=== PATIENT | female | born 1985 | race Caucasian/White ===

== ENCOUNTER 2017-11-03 05:25 | Inpatient (IN) | payer OTHER, SELFPAY ==
[2017-10-31 11:17] VITALS: BMI 30.1
[2017-11-03] VITALS (28 sets, daily range): BP systolic 87–111; BP diastolic 36–68; PULSE 45–88; RESP 16–18; TEMP 35.6–36.7; O2SAT 94–100; BMI 29.9
[2017-11-03] MEDS: Lactated Ringers 1,000 ML 999 ML IV (05:40)
[2017-11-03 06:00] LABS: Hematocrit 34.2 % (37-47); Hemoglobin 11.5 g/dl (12.0-15.0); Mean Corp Hgb Conc 33.6 g/gl (32-36); Mean Corpuscular Hgb 29.6 pg (27.0-32.0); Mean Corpuscular Volume 88.1 fL (81-99); Mean Platelet Vol. 10.5 fl (6.2-12.0); Platelet Count 251 K/mm3 (150-450); RBC Distribution Width CV 13.6 % (11.6-14.6); RBC Distribution Width SD 42.5 fl (35.1-43.9); Red Blood Count 3.88 M/mm3 (4.2-5.4); Scan Indicated on CBC? Y/N NO; White Blood Count 9.7 K/mm3 (4.4-11.0)
[2017-11-03 06:07] LABS: International Normalized Ratio 0.9; Prothrombin Time (Protime)PT. 12.4 SECONDS (11.7-14.9)
[2017-11-03 06:08] LABS: Partial Thromboplast Time 25.6 Seconds (24.1-36.2)
[2017-11-03] MEDS: Lactated Ringers 1,000 ML 150 ML IV (06:39)
[2017-11-03] MEDS: Sodium Citrate/Citric Acid 30 ML UDC PO (06:42)
[2017-11-03] MEDS: Cefazolin 2 GM in 0.9% Normal Saline 100 ML IV (07:30)
[2017-11-03] MEDS: Oxytocin 30 units/NS 500 ml 30 UNITS/500 ML IV.SOLN 167 UNITS IV (07:47)
--- NOTE | 2017-11-03 08:00 | FALS_PTH ---
PATIENT: ROBBY DAWSON LOC: [facility] U#:[id number] AGE/SX: 32/F ROOM: WP004 RE11/03/[address]: Dr. rKistie Key MD : [id number] BED: 1 DIS: 11/05/2017 SPEC #: [id number] RECD: 11/03/17 16:23 STATUS: MARY ANN REJun #: [id number] CYNTHIA: 11/03/17 08:[address]: Kristie Pineda DEPT: SURGICAL PATHOLOGY RECD BY: Femi Narvaez ENTERED: 11/07/17 11:20 SP TYPE: FALL TUBES OTHR DR: Ginette Primary Care Phys Tissues: Fallopian tube Procedures: Surgery Specimen Level II HEADER OPERATION: Tubal ligation PRE-OP DIAGNOSIS: Desires sterilization TISSUE SUBMITTED: Fallopian tubes MICROSCOPIC DIAGNOSIS Right and left fallopian tubes, bilateral partial salpingectomies: Two complete segments of fallopian tubes with no pathologic change. AM:radha 11/08/17 MICROSCOPIC DESCRIPTION Slides are reviewed. GROSS DESCRIPTION Received is one container labeled with the patient's name and not further designated and as per requisition ?stitch in right tube.? The specimen consists of two tubular pieces of perez soft tissue with the right tube identified by a suture which measures 2 cm in length and 0.6 cm in diameter. The left tube measures 2 cm in length and 0.6 cm in diameter. The right tube is inked black. The entire specimen is submitted in one cassette. Both pieces will be sectioned at the time of embedding. / KIT:radha 11/07/17 TC:4 CPT: 89966 x2
--- NOTE | 2017-11-03 08:24 | PCM.OPRPT ---
Problem List (1) 39 weeks gestation of Status: Acute (2) delivery delivered Status: Acute (3) Request for sterilization Status: Acute Report of Operation Date of Procedure: 11/03/17 Pre-Operative Diagnosis: 39 5/7wga, prior section x 2, sterilization request Post-Operative Diagnosis: 39 5/7wga, prior section x 2, sterilization request Surgery/Procedure Performed:: Repeat low transverse section Description of Surgical Findings:: Normal tubes and ovaries, minimal intra-abdominal scarring Vigorous female , Apgars 8 and 9 at 1 and 5 minutes of life respectively Infant weight 3724 g sample washer: Wiley Rivas Type of Anesthesia:: Spinal Anesthesiologist: Niko Charlton Specimen's removed: bilateral tubes, right tube tagged Estimated Blood Loss (mL): 500 Fluids Replaced: 2000 mL Description of Procedure: Indications: Ms. Serrano is a 32-year-old 3 para 2001 at 39-4/7 weeks gestational age with history of 2 prior sections presenting for scheduled repeat section. She also requested tubal sterilization. Risks, benefits, indications and alternatives of the procedures were reviewed at length. She desired to proceed. Procedure: The patient was taken to the operating room and spinal analgesia was administered. She is placed in a dorsal supine position with left lateral tilt. The perineum and abdomen were prepped and draped in sterile fashion. And the spinal was found to be adequate. A Pfannenstiel incision was made using a scalpel and brought down to incise the subcutaneous tissue and rectus fascia at the midline. Subcutaneous tissue was bluntly dissected off the fascia laterally. The fascial incision was dissected laterally and cephalad using curved Peña scissors. The superior leaflet of the rectus fascia was grasped using Devon clamps and bluntly dissected and sharply dissected from the underlying rectus muscle. In a similar fashion the inferior rectus fascia was dissected from the underlying muscle. The rectus muscles were significantly scarred and sharply at the midline. The peritoneum was identified and entered [sharply]. No incision was extended. The bladder blade was placed into the abdomen and the vesicouterine peritoneal fold identified. The fold was incised and a bladder flap created. Bladder blade was then repositioned to the abdomen. A low transverse hysterotomy was made using the [Metzenbaum scissors] to level of the membranes. The hysterotomy was extended bluntly cephalad and caudad. The membranes were then ruptured revealing stained fluid. The head was elevated and brought to the level of the hysterotomy and the delivered revealing vigorous [female] . The cord was doubly clamped and cut after 60 seconds. The infant was passed to awaiting [nursery personnel]. The placenta was [expressed] from the uterus and appeared intact on inspection. The uterus was exteriorized and cleared of debris. The hysterotomy was then repaired using 0 Vicryl running lock suture. A second imbricating layer was also placed for additional hemostasis. Attention was turned to the right adnexa and the tube grasped at the ampullary segment using a Melissa clamp. A defect was created in avascular portion of the mesosalpinx. Proximal and distal segment of the tube was suture-ligated using 0 plain gut suture. Approximately 2 cm intervening segment was excised. There is good hemostasis. In similar blend fashion a left partial salpingectomy tubal ligation was performed. Uterus and adnexa were returned to the abdomen. The hysterotomy again inspected and was hemostatic. The bladder blade was removed. The anterior cul-de-sac was cleared of debris. An omental adhesion to the anterior abdominal wall attaching to the peritoneum creating a risk for small bowel obstruction was identified. This distal adhesion was doubly clamped and cut and tied at the peritoneal attachment. The peritoneum and rectus muscles were reapproximated using 2-0 Vicryl running suture. The rectus fascia was closed using 0 Vicryl running suture. The subcutaneous tissue was sponge irrigated and small capillary bleeding controlled using the Bovie device. The subcutaneous tissue was reapproximated using 2-0 Vicryl. The layer was approximated using 4-0 Monocryl. The skin was closed using 4-0 Monocryl subcuticularly. This was followed by [place] and a Mepilex occlusive dressing was placed over the incision. The fundus was firm. The patient was then transferred to the recovery room without complication. Sponge, instrument, and needle counts were correct ?2. The patient tolerated the procedure well. - Complications None - Admit VTE Documentation VTE Present on Admission: No VTE Mechan Device Prophylaxis: SCD's VTE Pharm Prophylaxis ordered?: No
--- NOTE | 2017-11-03 08:32 | OP.PCM_ITS ---
Problem List (1) 39 weeks gestation of Status: Acute (2) delivery delivered Status: Acute (3) Request for sterilization Status: Acute Report of Operation Date of Procedure: 11/03/17 Pre-Operative Diagnosis: 39 5/7wga, prior section x 2, sterilization request Post-Operative Diagnosis: 39 5/7wga, prior section x 2, sterilization request Surgery/Procedure Performed:: Repeat low transverse section Description of Surgical Findings:: Normal tubes and ovaries, minimal intra-abdominal scarring Vigorous female , Apgars 8 and 9 at 1 and 5 minutes of life respectively Infant weight 3724 g forensics analyst: Wiley Rivas Type of Anesthesia:: Spinal Anesthesiologist: Niko Charlton Specimen's removed: bilateral tubes, right tube tagged Estimated Blood Loss (mL): 500 Fluids Replaced: 2000 mL Description of Procedure: Indications: Ms. Serrano is a 32-year-old 3 para 2001 at 39-4/7 weeks gestational age with history of 2 prior sections presenting for scheduled repeat section. She also requested tubal sterilization. Risks, benefits, indications and alternatives of the procedures were reviewed at length. She desired to proceed. Procedure: The patient was taken to the operating room and spinal analgesia was administered. She is placed in a dorsal supine position with left lateral tilt. The perineum and abdomen were prepped and draped in sterile fashion. And the spinal was found to be adequate. A Pfannenstiel incision was made using a scalpel and brought down to incise the subcutaneous tissue and rectus fascia at the midline. Subcutaneous tissue was bluntly dissected off the fascia laterally. The fascial incision was dissected laterally and cephalad using curved Peña scissors. The superior leaflet of the rectus fascia was grasped using Devon clamps and bluntly dissected and sharply dissected from the underlying rectus muscle. In a similar fashion the inferior rectus fascia was dissected from the underlying muscle. The rectus muscles were significantly scarred and sharply at the midline. The peritoneum was identified and entered [sharply]. No incision was extended. The bladder blade was placed into the abdomen and the vesicouterine peritoneal fold identified. The fold was incised and a bladder flap created. Bladder blade was then repositioned to the abdomen. A low transverse hysterotomy was made using the [ Metzenbaum scissors] to level of the membranes. The hysterotomy was extended bluntly cephalad and caudad. The membranes were then ruptured revealing stained fluid. The head was elevated and brought to the level of the hysterotomy and the delivered revealing vigorous [female] infant. The cord was doubly clamped and cut after 60 seconds. The was passed to awaiting [nursery personnel]. The placenta was [expressed] from the uterus and appeared intact on inspection. The uterus was exteriorized and cleared of debris. The hysterotomy was then repaired using 0 Vicryl running lock suture. A second imbricating layer was also placed for additional hemostasis. Attention was turned to the right adnexa and the tube grasped at the ampullary segment using a Melissa clamp. A defect was created in avascular portion of the mesosalpinx. Proximal and distal segment of the tube was suture-ligated using 0 plain gut suture. Approximately 2 cm intervening segment was excised. There is good hemostasis. In similar blend fashion a left partial salpingectomy tubal ligation was performed. Uterus and adnexa were returned to the abdomen. The hysterotomy again inspected and was hemostatic. The bladder blade was removed. The anterior cul-de-sac was cleared of debris. An omental adhesion to the anterior abdominal wall attaching to the peritoneum creating a risk for small bowel obstruction was identified. This distal adhesion was doubly clamped and cut and tied at the peritoneal attachment. The peritoneum and rectus muscles were reapproximated using 2-0 Vicryl running suture. The rectus fascia was closed using 0 Vicryl running suture. The subcutaneous tissue was sponge irrigated and small capillary bleeding controlled using the Bovie device. The subcutaneous tissue was reapproximated using 2-0 Vicryl. The layer was approximated using 4-0 Monocryl. The skin was closed using 4-0 Monocryl subcuticularly. This was followed by [place] and a Mepilex occlusive dressing was placed over the incision. The fundus was firm. The patient was then transferred to the recovery room without complication. Sponge, instrument, and needle counts were correct ?2. The patient tolerated the procedure well. - Complications None - Admit VTE Documentation VTE Present on Admission: No VTE Mechan Device Prophylaxis: SCD's VTE Pharm Prophylaxis ordered?: No
[2017-11-03] MEDS: Lactated Ringers 1,000 ML 100 ML IV ×3 (09:30→17:12)
[2017-11-03] MEDS: proMETHazine 25 MG/ML Syringe 12.5 MG IV (10:57)
[2017-11-03] MEDS: Lactated Ringers 500 ML 999 ML IV ×2 (11:25→13:35)
[2017-11-03 11:43] LABS: Hemoglobin 11.2 g/dl (12.0-15.0)
--- NOTE | 2017-11-03 12:10 | NURSING ---
bolus complete at 1200, assessment unchanged,
--- NOTE | 2017-11-03 13:00 | PCM.PN.BLA ---
Progress Note PROGESS NOTE FOR 11/03/17 APPROX 1300H Informed by nursing staff that patient with BPs to 80s-90s/30s-50s. On evaluation, patient AAO x 3 and sitting up in bed. Denies lightheadedness, palpitations, chest pain, shortness of breath or dizziness, bloating. She felt well. She indicated recollection of low BPs following her last section after receiving Duramorph. On exam, RRR, LCTAB. Abdomen soft, nontender, nondistended. Incisional dressing c/d/i. Fundus firm at umbilicus and lochia scant. No calf tenderness. Hgb 11.3. UO suboptimal. No evidence of active bleed or excessive intraop bleed. Low BP likely due to medication again. Suspect low UO due to low BP and NSAID also. Will avoid additional opioids in immediate postoperative period. Plan of care discussed with nursing staff.
[2017-11-03] MEDS: Ketorolac 30 MG/ML Syringe IV ×2 (14:41→20:20)
[2017-11-03 16:21] LABS: Pathology Specimen OB SEE PATHOLOGY REPORT
--- NOTE | 2017-11-03 18:57 | NURSING ---
1840 up in chair, pads changed, moderate amt sarah angela noted , birch emptied for 700
[2017-11-04] VITALS (7 sets, daily range): BP systolic 97–119; BP diastolic 46–66; PULSE 64–72; RESP 16–18; TEMP 36.6–37.1; O2SAT 96–99
[2017-11-04] MEDS: Ketorolac 30 MG/ML Syringe IV ×3 (02:19→14:17)
[2017-11-04 05:52] LABS: Hematocrit 30.1 % (37-47); Hemoglobin 9.6 g/dl (12.0-15.0); Mean Corp Hgb Conc 31.9 g/gl (32-36); Mean Corpuscular Hgb 28.7 pg (27.0-32.0); Mean Corpuscular Volume 90.1 fL (81-99); Mean Platelet Vol. 10.8 fl (6.2-12.0); Platelet Count 245 K/mm3 (150-450); RBC Distribution Width CV 13.9 % (11.6-14.6); RBC Distribution Width SD 44.2 fl (35.1-43.9); Red Blood Count 3.34 M/mm3 (4.2-5.4)
[2017-11-04 05:55] LABS: Scan Indicated on CBC? Y/N NO
[2017-11-04] MEDS: Prenatal Vits Tablet 1 TABLET PO (08:27)
[2017-11-04] MEDS: 0.9% Saline Lock 10 ML Syringe IV ×2 (08:27→14:18)
[2017-11-04] MEDS: oxyCODONE 5 MG Tablet PO ×3 (09:30→20:18)
--- NOTE | 2017-11-04 10:01 | PCM.PN.OB ---
Patient Problems: Active and Suspected Problems 39 weeks gestation of (Acute) Request for sterilization (Acute) Subjective: No issues overnight. She is passing flatus and tolerates a regular diet. is nursing well. Anu is sore, but pain overall well controlled. She was out of bed to the chair last night. Objective: AVSS - Physical Exam General: Alert, Oriented x3, Cooperative HEENT: Atraumatic, Normocephalic Lungs: Clear to auscultation, Normal air movement Cardiovascular: Regular rate, Regular Rhythm, No murmurs Abdomen: Bowel Sounds Present, Soft, Non Tender, - - Incisional dressing c/d/i and nontender, fundus firm and nontender, scant lochia Extremities: No edema, No Calf Tenderness Neurological: Neuro grossly intact Psych/Mental Status: Normal Affect, Appropriate, Alert and oriented to time, place, person, mood and affect Vital Signs Temp Pulse Resp BP Pulse Ox 97.8 F 69 16 106/47 L 99 11/04/17 08:00 11/04/17 08:00 11/04/17 08:00 11/04/17 08:00 11/04/17 08:00 Oxygen Delivery Method Room Air Weight: 87.997 kg Body Mass Index (BMI) 29.9 Intake and Output for Last 24 Hours 11/02/17 11/03/17 11/04/17 23:59 23:59 23:59 Intake Total 6433 / 6433 923 / 923 Output Total 3586 / 3586 3100 / 3100 Balance 2847 / 2847 -2177 / -2177 Laboratory Tests Past 24 Hrs 11/03/17 11/04/17 11:32 05:25 WBC 10.0 RBC 3.34 L Hgb 11.2 L 9.6 L Hct 30.1 L MCV 90.1 MCH 28.7 MCHC 31.9 L RDW 13.9 RDW Differential 44.2 H Plt Count 245 MPV 10.8 Medical Necessity - Tobacco Use Smoking Status: Former smoker Assessment/Plan Active and Suspected Problems 39 weeks gestation of (Acute) Request for sterilization (Acute) 32yo POD#1 s/p RLTCS with BTL doing well. -H/H stable and BPs stable -Routine postop care -[place] discontinued, Ambulation encouraged - -Rh positive, Rubella immune
--- NOTE | 2017-11-04 10:12 | PCM.DCCSEC ---
Discharge Diet: No Restrictions Discharge Activity: May Not Drive - for 2 weeks or while taking narcotic pain meds., May not drive while taking narcotic pain medications., May Shower May resume sexual activity in: 6 weeks Lifting Restrictions: 10 lb Call your doctor if your incision/area has: Continuous Slow Oozing, Sudden Increased Bleeding, Increased Pain/ Swelling, Increased Redness, Foul Smelling Discharge Call your doctor if you observe: Fever of 101 or Higher, Inability to urinate, Inability to have a bowel movement, Using more than one pad per hour, Shortness of breath, Chest pain, Calf discomfort, Uncontrolled pain Suture Line Care: Avoid Pulling/Pushing Remove Dressing in (days):: 2 Cleanse incision/area with: Soap & Water Additional Instructions: If you experience any of the following, contact your healthcare provider. Bleeding that soaks a pad every hour for 2 hours Fever 100.4 or higher Unrelieved incision or abdominal pain Swelling, redness, discharge or bleeding from your incision or episiotomy site Your incision begins to separate Problems urinating (including inability to urinate or burning while urinating). Visual changes Severe headache Flu-like symptoms Pain or redness in one of both of your breasts Pain, warmth, tenderness or swelling in your legs, especially the calf area Frequent nausea and vomiting Symptoms of depression or anxiety If you experience any of the following, call 911 or go to the nearest Emergency Room. Chest pain Problems breathing Seizure activity Partial or complete paralysis of a body part, slurred speech, weakness or drooping of the face, or a sudden inability to walk or hold your balance Remove dressing on Monday 11/06 or or Tuesday 11/07 Allergies/Adverse Reactions: Allergies hydrocodone Adverse Reaction (Verified 11/03/17 05:40) Nausea Medications to take at Discharge Vits [Prenatabs FA ] 1 tablet PO DAILY 01/30/15 Fish Oil/Dha/Epa [Fish Oil 1,200 mg Fish Oil] 1 each PO DAILY 10/31/17 Vitamin B Complex 1 each PO DAILY 10/31/17 Acetaminophen [Tylenol] 1,000 mg PO Q8H PRN tablet 11/04/17 Ibuprofen 600 mg PO TID PRN #30 tab 11/04/17 Oxycodone [Oxyir] 1 - 2 tab PO Q6H PRN #28 tablet 11/04/17 Docusate Sodium [Colace] 100 mg PO BID PRN PRN #60 cap 11/05/17 The following prescriptions were given: Docusate Sodium [Colace] 100 mg PO BID PRN PRN #60 cap PRN Reason: Constipation Oxycodone [Oxyir] 1 - 2 tab PO Q6H PRN #28 tablet PRN Reason: Mod-Severe Pain (4-03/21) Ibuprofen 600 mg PO TID PRN #30 tab PRN Reason: Pain Follow-Up: Call to make an appointment with your doctor for an incision check in 1-2 weeks. You will also need a 6 week post- follow up appointment. Please Follow Up With: Kristie Randhawa MD When: 7-10 days Primary Care Physician: Care Physician,No Primary [Primary Care Provider] -
--- NOTE | 2017-11-04 10:18 | DCINST_ITS ---
Discharge Diet: No Restrictions Discharge Activity: May Not Drive - for 2 weeks or while taking narcotic pain meds., May not drive while taking narcotic pain medications., May Shower May resume sexual activity in: 6 weeks Lifting Restrictions: 10 lb Call your doctor if your incision/area has: Continuous Slow Oozing, Sudden Increased Bleeding, Increased Pain/ Swelling, Increased Redness, Foul Smelling Discharge Call your doctor if you observe: Fever of 101 or Higher, Inability to urinate, Inability to have a bowel movement, Using more than one pad per hour, Shortness of breath, Chest pain, Calf discomfort, Uncontrolled pain Suture Line Care: Avoid Pulling/Pushing Remove Dressing in (days):: 2 Cleanse incision/area with: Soap & Water Additional Instructions: If you experience any of the following, contact your healthcare provider. * Bleeding that soaks a pad every hour for 2 hours * Fever 100.4 or higher * Unrelieved incision or abdominal pain * Swelling, redness, discharge or bleeding from your incision or episiotomy site * Your incision begins to separate * Problems urinating (including inability to urinate or burning while urinating) . * Visual changes * Severe headache * Flu-like symptoms * Pain or redness in one of both of your breasts * Pain, warmth, tenderness or swelling in your legs, especially the calf area * Frequent nausea and vomiting * Symptoms of depression or anxiety If you experience any of the following, call 911 or go to the nearest Emergency Room. * Chest pain * Problems breathing * Seizure activity * Partial or complete paralysis of a body part, slurred speech, weakness or drooping of the face, or a sudden inability to walk or hold your balance Remove dressing on Monday 11/06 or or Tuesday 11/07 Allergies/Adverse Reactions: Allergies hydrocodone Adverse Reaction (Verified 11/03/17 05:40) Nausea Medications to take at Discharge Vits [Prenatabs FA ] 1 tablet PO DAILY 01/30/15 Fish Oil/Dha/Epa [Fish Oil 1,200 mg Fish Oil] 1 each PO DAILY 10/31/17 Vitamin B Complex 1 each PO DAILY 10/31/17 Acetaminophen [Tylenol] 1,000 mg PO Q8H PRN tablet 11/04/17 Ibuprofen 600 mg PO TID PRN #30 tab 11/04/17 Oxycodone [Oxyir] 1 - 2 tab PO Q6H PRN #28 tablet 11/04/17 Docusate Sodium [Colace] 100 mg PO BID PRN PRN #60 cap 11/05/17 The following prescriptions were given: Docusate Sodium [Colace] 100 mg PO BID PRN PRN #60 cap PRN Reason: Constipation Oxycodone [Oxyir] 1 - 2 tab PO Q6H PRN #28 tablet PRN Reason: Mod-Severe Pain (-03/21) Ibuprofen 600 mg PO TID PRN #30 tab PRN Reason: Pain Follow-Up: Call to make an appointment with your doctor for an incision check in 1-2 weeks. You will also need a 6 week post- follow up appointment. Please Follow Up With: Kristie Randhawa MD When: 7-10 days Primary Care Physician: Care Physician,No Primary [Primary Care Provider] -
[2017-11-04] MEDS: Ibuprofen 600 MG Tablet PO (22:34)
[2017-11-05] MEDS: Acetaminophen 500 MG Tablet 1000 MG PO ×2 (00:20→08:39)
[2017-11-05] MEDS: oxyCODONE 5 MG Tablet PO ×3 (00:21→09:28)
[2017-11-05 02:15] VITALS: BP 109/53; PULSE 59; RESP 17; TEMP 36.1
[2017-11-05] MEDS: Ibuprofen 600 MG Tablet PO ×2 (05:23→11:56)
--- NOTE | 2017-11-05 08:05 | PCM.PN.OB ---
Patient Problems: Active and Suspected Problems 39 weeks gestation of (Acute) Request for sterilization (Acute) Subjective: No complaints. Infant continues to nurse well. Anu is OOB, voiding without difficulty, passing flatus and had a bowel movement. She looks forward to going home today. Objective: AVSS - Physical Exam General: Alert, Oriented x3, Cooperative, No apparent distress HEENT: Atraumatic, Normocephalic Lungs: Clear to auscultation, Normal air movement Cardiovascular: Regular rate, Regular Rhythm, Normal S1, Normal S2 Abdomen: Bowel Sounds Present, Soft, Non Tender, Non-Distended, - - Fundus firm and nontender, nontender, incisional dressing c/d/i Extremities: No edema, No Calf Tenderness Neurological: Neuro grossly intact Psych/Mental Status: Normal Affect, Appropriate, Alert and oriented to time, place, person, mood and affect Vital Signs Temp Pulse Resp BP Pulse Ox 97.0 F L 59 L 17 109/53 L 98 11/05/17 02:15 11/05/17 02:15 11/05/17 02:15 11/05/17 02:15 11/04/17 19:20 Oxygen Delivery Method Room Air Weight: 87.997 kg Body Mass Index (BMI) 29.9 Intake and Output for Last 24 Hours 11/03/17 11/04/17 11/05/17 23:59 23:59 23:59 Intake Total 6433 / 6433 923 / 923 Output Total 3586 / 3586 4000 / 4000 Balance 2847 / 2847 -3077 / -3077 Medical Necessity - Tobacco Use Smoking Status: Former smoker Assessment/Plan Active and Suspected Problems 39 weeks gestation of (Acute) Request for sterilization (Acute) 32yo POD#2 s/p RLTCS with BTL doing well. - -Rh positive, Rubella immune -d/c home today
--- NOTE | 2017-11-05 08:08 | PCM.DC.SUM ---
Discharge Date and Diagnosis - Problem List Patient Problems: Active and Suspected Problems 39 weeks gestation of (Acute) Request for sterilization (Acute) Date of Admission: 11/03/17 Date of Discharge: 11/05/17 - Primary Discharge Diagnosis Active and Suspected Problems 39 weeks gestation of (Acute) Request for sterilization (Acute) Hospital Course and Treatment Operations: - - section, bilateral tubal ligation Summary of Care Provided: The patient is a 32 year old F admitted at 39 weeks gestation for scheduled repeat section with bilateral tubal ligation. Her procedure was uncomplicated. Post-operatively, she had low blood pressures, but otherwise remained hemodynamically stable - this was attributed to effects of spinal analgesia and duramorph. Her post-operative course was otherwise unremarkable. She was out of bed, ambulating, passing flatus and had a bowel movement. She was . She was discharged to home on post-operative day #2. Discharge Diet: No Restrictions Discharge Activity: May Not Drive - for 2 weeks or while taking narcotic pain meds., May not drive while taking narcotic pain medications., May Shower May resume sexual activity in: 6 weeks Call your doctor if your incision/area has: Continuous Slow Oozing, Sudden Increased Bleeding, Increased Pain/ Swelling, Increased Redness, Foul Smelling Discharge Call your doctor if you observe: Fever of 101 or Higher, Inability to urinate, Inability to have a bowel movement, Using more than one pad per hour, Shortness of breath, Chest pain, Calf discomfort, Uncontrolled pain Suture Line Care: Avoid Pulling/Pushing Remove Dressing in (days):: 2 Cleanse incision/area with: Soap & Water Home Medications: Medications to take at Discharge Vits [Prenatabs FA ] 1 tablet PO DAILY 01/30/15 Fish Oil/Dha/Epa [Fish Oil 1,200 mg Fish Oil] 1 each PO DAILY 10/31/17 Vitamin B Complex 1 each PO DAILY 10/31/17 Acetaminophen [Tylenol] 1,000 mg PO Q8H PRN tablet 11/04/17 Ibuprofen 600 mg PO TID PRN #30 tab 11/04/17 Oxycodone [Oxyir] 1 - 2 tab PO Q6H PRN #28 tablet 11/04/17 Docusate Sodium [Colace] 100 mg PO BID PRN PRN #60 cap 11/05/17 Following Prescrptions Were Given to Patient: Docusate Sodium [Colace] 100 mg PO BID PRN PRN #60 cap PRN Reason: Constipation Oxycodone [Oxyir] 1 - 2 tab PO Q6H PRN #28 tablet PRN Reason: Mod-Severe Pain (-03/21) Ibuprofen 600 mg PO TID PRN #30 tab PRN Reason: Pain Primary Care Physician: Care Physician,No Primary [Primary Care Provider] - Please Follow Up With: Kristie Randhawa MD When: 7-10 days Medical Necessity - Tobacco Use Smoking Status: Former smoker Meaningful Use Info Meaningful Use Diagnoses (Choose all that apply): None applicable
[2017-11-05] MEDS: Senna/Docusate Sodium 1 Tablet PO (08:40)
[2017-11-05] MEDS: Prenatal Vits Tablet 1 TABLET PO (08:41)
[2017-11-05 08:49] VITALS: BP 106/46; PULSE 66; RESP 16; TEMP 36.6; O2SAT 98
== END 2017-11-05 12:30 | disposition home or self-care (01) | DRG 766 ==
PROVIDERS: Admitting Provider Obstetrics & Gynecology; Visit Provider Obstetrics & Gynecology
DX: O34.211 Maternal care for low transverse scar from previous cesarean delivery (principal); O89.8 Other complications of anesthesia during the puerperium; I95.2 Hypotension due to drugs; T40.2X5A Adverse effect of other opioids, initial encounter; Y92.230 Patient room in hospital as the place of occurrence of the external cause; Z3A.39 39 weeks gestation of pregnancy; Z37.0 Single live birth; Z87.891 Personal history of nicotine dependence; Z30.2 Encounter for sterilization
CPT/HCPCS: 85018; 85027; 85610; 85730; 86850; 86900; 88302; 99218; J7120; A4216; G0378; J2405

== ENCOUNTER 2017-11-10 12:30 | Outpatient (CLI) | payer OTHER, SELFPAY | END 2017-11-10 13:30 | disposition home or self-care (01) | LOC: WPOUT 12:38 → WP 12:40 | PROVIDERS: Visit Provider Obstetrics & Gynecology | DX: O92.79 Other disorders of lactation (principal) | CPT/HCPCS: 96152 ==

== ENCOUNTER 2018-03-08 08:47 | Day surgery (SDC) | payer OTHER, SELFPAY ==
[2018-03-02 10:33] LABS: Hematocrit 41.1 % (37-47); Hemoglobin 13.4 g/dl (12.0-15.0); Mean Corp Hgb Conc 32.6 g/gl (32-36); Mean Corpuscular Hgb 28.6 pg (27.0-32.0); Mean Corpuscular Volume 87.6 fL (81-99); Mean Platelet Vol. 10.5 fl (6.2-12.0); Platelet Count 267 K/mm3 (150-450); RBC Distribution Width CV 13.4 % (11.6-14.6); RBC Distribution Width SD 42.7 fl (35.1-43.9); Red Blood Count 4.69 M/mm3 (4.2-5.4); Scan Indicated on CBC? Y/N NO; White Blood Count 5.3 K/mm3 (4.4-11.0)
[2018-03-02 10:44] LABS: Partial Thromboplast Time 28.1 Seconds (24.1-36.2); Prothrombin Time (Protime)PT. 12.7 SECONDS (11.7-14.9)
--- OUTSIDE RECORDS SUMMARY | 2018-03-02 11:37 | XMS RPT_ITS ---
:1985 Author Organization OHIP Care Team Providers Name Role Phone Kristie Randhawa Admitting Unavailable Sydnee Summer Attending Unavailable Sydnee Summer Referring Unavailable Primay Care Physicia, No Primary Care Unavailable Sydnee Summer Attending Unavailable Sydnee Summer Referring Unavailable Primay Care Physicia, No Primary Care Unavailable PROBLEMS PROBLEMS DATE TYPE CONDITION / CODE ATTENDING STATUS SOURCE 11/07/2017 Unknown O82 - Encounter Filemon Randhawa for Summer [facility] delivery without Hospital indication / Repository O82(ICD-10) PROCEDURES PROCEDURES No Procedure Records FoundRESULTS RESULTS DISCHARGE SUMMARY Observed: 11/05/2017 Status: F Source: ROBER 8:10 AM [facility] REPOSITORY [facility] Ujoiprvxgl3220 MARISA VICENTE 179[address]Zwtwoycma Ndbqkeh91/27/18 0808MR#: [id number] Acct: [id number]: ROBBY SILVA Rep #: [id number]: 1985 32 From: Kristie Randhawa MDPCP: Care Physician , No Primary Status: ADM IN YLocation: WP [id number] Date and Diagnosis- Problem ListPatient Problems:Active and Suspected Baevyfis84 weeks gestation of (Acute)Request for sterilization (Acute)Date of Admission: 11/03/17Date of Discharge: 11/05/17- Primary Discharge DiagnosisActive and Suspected Sbdrvtml19 weeks gestation of (Acute)Request for sterilization (Acute)Hospital Course and TreatmentOperations: - - section, bilateral tubal ligationSummary of Care Provided:The patient is a 32 year old F admitted at 39 weeks gestation for scheduled repeat Cesareansection with bilateral tubal ligation. Her procedure was uncomplicated. Post-operatively, shehad low blood pressures, but otherwise remained hemodynamically stable - this was attributed toeffects of spinal analgesia and duramorph. Her post-operative course was otherwiseunremarkable. She was out of bed, ambulating, passing flatus and had a bowel movement. She wasbreastfeeding. She was discharged to home on post-operative day # 2.Discharge Diet: No RestrictionsDischarge Activity: May Not Drive - for 2 weeks or while taking narcotic pain meds., May notdrive while taking narcotic pain medications., May ShowerMay resume sexual activity in: 6 weeksCall your doctor if your incision/ area has: Continuous Slow Oozing, Sudden Increased Bleeding,Increased Pain/ Swelling , Increased Redness, Foul Smelling DischargeCall your doctor if you observe: Fever of 101 or Higher, Inability to urinate, Inability tohave a bowel movement, Using more than one pad per hour, Shortness of breath, Chest pain, Calfdiscomfort, Uncontrolled painSuture Line Care: Avoid Pulling/PushingRemove Dressing in (days):: 2Cleanse incision/area with: Soap AND WaterHome Medications:Medications to take at DischargePrenatal Vits [Prenatabs FA ] 1 tablet PO DAILY 01/30/15Fish Oil/Dha/Epa [Fish Oil 1,200 mg Fish Oil] 1 each PO DAILY 10/31/17Vitamin B Complex 1 each PO DAILY 10/31/17Acetaminophen [Tylenol] 1,000 mg PO Q8H PRN tablet 11/04/17Ibuprofen 600 mg PO TID PRN #30 tab 11/04/17Oxycodone [Oxyir] 1 - 2 tab PO Q6H PRN #28 tablet 11/04/17Docusate Sodium [Colace] 100 mg PO BID PRN PRN #60 cap 11/05/17ollowing Prescrptions Were Given to Patient:Docusate Sodium [Colace] 100 mg PO BID PRN PRN #60 capPRN Reason: ConstipationOxycodone [Oxyir] 1 - 2 tab PO Q6H PRN #28 tabletPRN Reason: Mod-Severe Pain (-03/21)Ibuprofen 600 mg PO TID PRN #30 tabPRN Reason: PainPrimary Care Physician:Care Physician,No Primary [Primary Care Provider] -Please Follow Up With: Kristie Randhawa MDWhen: 7-10 daysMedical Necessity - Tobacco UseSmoking Status: Former smokerMeaningful Use InfoMeaningful Use Diagnoses (Choose all that apply): None fkrrlehiwn15/27/18 0810 <Electronically signed by Kristie Randhawa MD>Date Kristie Randhawa [facility] (if applicable): Date _CC: No Primary Care Physician; Krsitie Randhawa MD Signed DISCHARGE INSTRUCTION Observed: 11/05/2017 Status: F Source: BOWIE 8:05 AM [facility] REPOSITORY [facility] [address] [place] [address]Jpdycrztkyzv for Home/Discharge Qebptukhqmgh54/26/18 1012MR #: [id number] Acct: [id number]: ROBBY SILVA Rep #: [id number]: 1985 32 From: Kristie Key MDPCP: Care Physician, No Primary Status: ADM INDischarge Diet: No RestrictionsDischarge Activity: May Not Drive - for 2 weeks or while taking narcotic pain meds., May notdrive while taking narcotic pain medications., May ShowerMay resume sexual activity in: 6 weeksLifting Restrictions: 10 lbCall your doctor if your incision/area has: Continuous Slow Oozing, Sudden Increased Bleeding,Increased Pain/ Swelling, Increased Redness, Foul Smelling DischargeCall your doctor if you observe: Fever of 101 or Higher, Inability to urinate, Inability tohave a bowel movement, Using more than one pad per hour, Shortness of breath , Chest pain, Calfdiscomfort, Uncontrolled painSuture Line Care: Avoid Pulling/ PushingRemove Dressing in (days):: 2Cleanse incision/area with: Soap AND WaterAdditional Instructions:If you experience any of the following, contact your healthcare provider.* Bleeding that soaks a pad every hour for 2 hours* Fever 100.4 or higher* Unrelieved incision or abdominal pain* Swelling, redness, discharge or bleeding from your incision or episiotomy site* Your incision begins to separate* Problems urinating (including inability to urinate or burning while urinating).* Visual changes* Severe headache* Flu-like symptoms* Pain or redness in one of both of your breasts* Pain, warmth, tenderness or swelling in your legs, especially the calf area* Frequent nausea and vomiting* Symptoms of depression or anxietyIf you experience any of the following, call 911 or go to the nearest Emergency Room.* Chest pain* Problems breathing* Seizure activity* Partial or complete paralysis of a body part, slurred speech, weakness or drooping of theface, or a sudden inability to walk or hold your balanceRemove dressing on Monday 11/06 or or Tuesday 11/07Allergies/Adverse Reactions:Allergieshydrocodone Adverse Reaction (Verified 11/03/17 05:40)NauseaMedications to take at DischargePrenatal Vits [Prenatabs FA ] 1 tablet PO DAILY 01/30/15Fish Oil/Dha/Epa [Fish Oil 1,200 mg Fish Oil] 1 each PO DAILY 10/31/17Vitamin B Complex 1 each PO DAILY 10/31/17Acetaminophen [Tylenol] 1, 000 mg PO Q8H PRN tablet 11/04/17Ibuprofen 600 mg PO TID PRN #30 tab 11/04/17Oxycodone [ Oxyir] 1 - 2 tab PO Q6H PRN #28 tablet 11/04/17Docusate Sodium [Colace] 100 mg PO BID PRN PRN #60 cap 11/05/17The following prescriptions were given:Docusate Sodium [ Colace] 100 mg PO BID PRN PRN #60 capPRN Reason: ConstipationOxycodone [Oxyir] 1 - 2 tab PO Q6H PRN #28 tabletPRN Reason: Mod-Severe Pain (4-03/21)Ibuprofen 600 mg PO TID PRN #30 tabPRN Reason: PainFollow-Up:Call to make an appointment with your doctor for an incision check in 1-2 weeks. You will alsoneed a 6 week post- follow up appointment.Please Follow Up With: Kristie Randhawa MDWhen: 7-10 daysPrimary Care Physician:Care Physician,No Primary [Primary Care Provider] -11/05/17 0805 <Electronically signed by Kristie Randhawa MD>Date Kristie Randhawa MDCC: No Primary Care Physician CBC-COMPLETE BLOOD CNT Collected: 11/04/2017 Status: F Source: ROBER NO DIFF 5:25 AM [facility] REPOSITORY Order Comment: Comments: Day #1Reason for Laboratory Test TYPE CODE TESTS RESULT OUT OF RANGE REFERENCE UNITS LAB L100.1000 Normal 4.4-11.0 K/mm3 WBC 10.0 LAB L100.1200 Low 4.2-5.4 M/mm3 RBC 3.34 LAB L100.1300 Low 12.0-15.0 g/dl HGB 9.6 LAB L100.1400 Low 37-47 % HCT 30.1 LAB L100.1500 Normal 81-99 fL MCV 90.1 LAB L100.1600 Normal 27.0-32.0 pg MCH 28.7 LAB L100.1700 Low 32-36 g/gl MCHC 31.9 LAB L100.1810 Normal 11.6-14.6 % RDW 13.9 CV LAB L100.1820 High 35.1-43.9 fl RDW 44.2 SD LAB L100.1900 Normal 150-450 K/mm3 PLT 245 LAB L100.2000 Normal 6.2-12.0 fl MPV 10.8 Performed By: #### L100.0500 ####[facility] [address] [place] [place], [address] HEMOGLOBIN Collected: 11/03/2017 Status: F Source: BOWIE 11:32 AM [facility] REPOSITORY TYPE CODE TESTS RESULT OUT OF RANGE REFERENCE UNITS LAB L100.1300 Low 12.0-15.0 g/dl HGB 11.2 Performed By: #### L100.1300 ####[facility] [address] [place], [address] OPERATIVE REPORT Observed: 11/03/2017 Status: F Source: BOWIE 8:32 AM [facility] REPOSITORY [facility] [address] [place], [place] [address]Rvquwfosz Ooebtx64/25/18 0824MR#: [id number] Acct: [id number]: ROBBY SILVA Rep #: [id number]: 1985 32 From: Kristie Randhawa MDPCP: Care Physician , No Primary Status: ADM IN ocation: WP [id number] List(1) 39 weeks gestation of pregnancyStatus: Acute(2) delivery deliveredStatus: Acute(3) Request for sterilizationStatus: AcuteReport of OperationDate of Procedure: 11/03/17Pre-Operative Diagnosis: 39 5/7wga, prior section x 2, sterilization requestPost-Operative Diagnosis: 39 5/7wga, prior section x 2, sterilization requestSurgery/Procedure Performed:: Repeat low transverse sectionDescription of Surgical Findings::Normal tubes and ovaries, minimal intra-abdominal scarringVigorous female infant, Apgars 8 and 9 at 1 and 5 minutes of life respectivelyInfant weight 3724 gOR Cobbler Upper: Wiley Rivas of Anesthesia:: SpinalAnesthesiologist: Gary Charlton's removed: bilateral tubes, right tube taggedEstimated Blood Loss (mL): 500Fluids Replaced: 2000 mLDescription of Procedure:Indications: Ms. Silva is a 32-year-old 3 para 2001 at 39-4/7 weeks gestational agewith history of 2 prior sections presenting for scheduled repeat section. She alsorequested tubal sterilization. Risks, benefits, indications and alternatives of the procedureswere reviewed at length. She desired to proceed.Procedure:The patient was taken to the operating room and spinal analgesia was administered. She isplaced in a dorsal supine position with left lateral tilt. The perineum and abdomen wereprepped and draped in sterile fashion. And the spinal was found to be adequate. APfannenstiel incision was made using a scalpel and brought down to incise the subcutaneoustissue and rectus fascia at the midline. Subcutaneous tissue was bluntly dissected off thefascia laterally. The fascial incision was dissected laterally and cephalad using curved Mayoscissors. The superior leaflet of the rectus fascia was grasped using Devon clamps andbluntly dissected and sharply dissected from the underlying rectus muscle. In a similarfashion the inferior rectus fascia was dissected from the underlying muscle. The rectusmuscles were significantly scarred and sharply at the midline. The peritoneum wasidentified and entered [sharply]. No incision was extended. The bladder blade was placed intothe abdomen and the vesicouterine peritoneal fold identified. The fold was incised and abladder flap created. Bladder blade was then repositioned to the abdomen. A low transversehysterotomy was made using the [Metzenbaum scissors] to level of the membranes. Thehysterotomy was extended bluntly cephalad and caudad. The membranes were then rupturedrevealing stained fluid. The head was elevated and brought to the level of thehysterotomy and the delivered revealing vigorous [female] infant. The cord was doublyclamped and cut after 60 seconds. The was passed to awaiting [nursery personnel]. Theplacenta was [expressed] from the uterus and appeared intact on inspection. The uterus wasexteriorized and cleared of debris. The hysterotomy was then repaired using 0 Vicryl runninglock suture. A second imbricating layer was also placed for additional hemostasis. Attentionwas turned to the right adnexa and the tube grasped at the ampullary segment using a Babcockclamp. A defect was created in avascular portion of the mesosalpinx. Proximal and distalsegment of the tube was suture-ligated using 0 plain gut suture. Approximately 2 cmintervening segment was excised. There is good hemostasis. In similar blend fashion a leftpartial salpingectomy tubal ligation was performed. [facility] and [facility] The hysterotomy again inspected and was hemostatic. The bladder blade was removed.The anterior cul-de-sac was cleared of debris. An omental adhesion to the anterior abdominalwall attaching to the peritoneum creating a risk for small bowel obstruction was identified.This distal adhesion was doubly clamped and cut and tied at the peritoneal attachment. Theperitoneum and rectus muscles were reapproximated using 2-0 Vicryl running suture. The rectusfascia was closed using 0 Vicryl running suture. The subcutaneous tissue was sponge irrigatedand small capillary bleeding controlled using the Bovie device. The subcutaneous tissue wasreapproximated using 2-0 Vicryl. The layer was approximated using 4-0 Monocryl. The skin wasclosed using 4-0 Monocryl subcuticularly.This was followed by Cavilon and a Mepilex occlusive dressing was placed over the incision.The fundus was firm. The patient was then transferred to the recovery room withoutcomplication. Sponge, instrument, and needle counts were correct 2. The patient toleratedthe procedure well.- ComplicationsNone- Admit VTE DocumentationVTE Present on Admission: NoVTE Mechan Device Prophylaxis: SCD'sVTE Pharm Prophylaxis ordered?: No 0832 <Electronically signed by Kristie Randhawa MD>Date Kristie Randhawa MDCC: No Primary Care Physician; Kristie Randhawa MD Signed FALLOPIAN TUBES/STERILIZATION Observed: 11/03/2017 Status: F Source: ROBER 8:00 AM [facility] REPOSITORY Patient: ROBBY SILVA : 1985 () Acct Num: [id number] Phys: Kristie Randhawa MD Unit Num: [id number] Loc: WP [id number] Specimen: [id number] Received: 11/03/171622 Spec Type: FALL TUBES TISSUES TISSUES: Fallopian tube GROSS DESCRIPTION Received is one container labeled with the patient's name and not further designated and as per requisition stitch in right tube. The specimen consistsof two tubular pieces of perez soft tissue with the right tube identified by a suture which measures 2 cm in length and 0.6 cm in diameter. The left tube measures 2 cm in length and 0.6 cm in diameter. The right tube is inked black. The entire specimen is submitted in one cassette. Both pieces will be sectionedat the time of embedding. / SJ:radha 11/07/17 TC:4 CPT: 36786 x2 HEADER OPERATION: Tubal ligation PRE- OP DIAGNOSIS: Desires sterilization TISSUE SUBMITTED: Fallopian tubes MICROSCOPIC DESCRIPTION Slides are reviewed. MICROSCOPIC DIAGNOSIS Right and left fallopian tubes, bilateral partial salpingectomies: Two complete segments of fallopian tubes with no pathologic change. AM:radha 11/08/17 Signed Shaun [facility] 11/08/17 <signature on file> Performed By: #### PFALS ####[facility] [address] [place], [address] PATHOLOGY SPECIMEN OB Collected: 11/03/2017 Status: F Source: ROBER 8:00 AM [facility] REPOSITORY Order Comment: Reason for Laboratory Test Placenta for Lab studiesSend Specimen For (Specify): Studies @ [facility] Lab:RoutineTime of Procedure: 08Date of Procedure: 11/03/17Reason specimen being sent to pathology (Hx/complications):repeat c/s, tubal ligationType of specimen: Fallopian TubeType of procedure performed: Tubal Ligation TYPE CODE TESTS RESULT OUT OF RANGE REFERENCE UNITS LAB L350.1800 Normal SEE PATH. Spec. PATHOLOGY OB REPORT Result Comment: Specimen submitted to Anatomical Pathology Department fortesting. Performed By: #### L350.1800 ####[facility] [address] [place], [place], [address] CBC-COMPLETE BLOOD CNT Collected: 11/03/2017 Status: F Source: ROBER NO DIFF 5:42 AM [facility] REPOSITORY TYPE CODE TESTS RESULT OUT OF RANGE REFERENCE UNITS LAB L100.1000 Normal 4.4-11.0 K/mm3 WBC 9.7 LAB L100.1200 Low 4.2-5.4 M/mm3 RBC 3.88 LAB L100.1300 Low 12.0-15.0 g/dl HGB 11.5 LAB L100.1400 Low 37-47 % HCT 34.2 LAB L100.1500 Normal 81-99 fL MCV 88.1 LAB L100.1600 Normal 27.0-32.0 pg MCH 29.6 LAB L100.1700 Normal 32-36 g/gl MCHC 33.6 LAB L100.1810 Normal 11.6-14.6 % RDW 13.6 CV LAB L100.1820 Normal 35.1-43.9 fl RDW 42.5 SD LAB L100.1900 Normal 150-450 K/mm3 PLT 251 LAB L100.2000 Normal 6.2-12.0 fl MPV 10.5 Performed By: #### L100.0500 ####[facility] [address] [place], [place], [id number] PROTHROMBIN TIME W/INR Collected: 11/03/2017 Status: F Source: ROBER 5:42 AM [facility] REPOSITORY TYPE CODE TESTS RESULT OUT OF RANGE REFERENCE UNITS LAB L300.4150 Normal 11.7-14.9 SECONDS PROTIME 12.4 LAB L300.4200 Normal INR 0.9 Performed By: #### L300.3900, L300.4310 ####[facility] [address] [place], [place], [address] PARTIAL THROMBOPLAST Collected: 11/03/2017 Status: F Source: ROBER TIME 5:42 AM [facility] REPOSITORY TYPE CODE TESTS RESULT OUT OF RANGE REFERENCE UNITS LAB L300.4310 Normal 24.1-36.2 Seconds PTT 25.6 Performed By: #### L300.3900, L300.4310 ####[facility] [address] [place], [address] TYPE AND SCREEN Collected: 11/03/2017 Status: F Source: ROBER 5:42 AM [facility] REPOSITORY Order Comment: Reason for Type AND Screen/Red Cells: ROUTINE TYPE CODE TESTS RESULT OUT OF RANGE REFERENCE UNITS LAB B10.0800 Normal BLOOD A TYPE GEL POSITIVE LAB B100.4000 Normal Antibody NEGATIVE Screen Performed By: #### B101.7450 ####[facility] [address] [place], [address] ALLERGIES ALLERGIES DATE TYPE / CODE NAME / CODE REACTION SEVERITY SOURCE 11/03/2017 Drug hydrocodone/ Nausea Unknown [facility] Allergy/4160 [id number]( Hospital 85694(SNOMED XNORM) Repository CT) ENCOUNTERS ENCOUNTERS ADMIT/DISCHARGE ACCOUNT ADMITTING ENCOUNTER LOCATION SOURCE NUMBER CLASS 11/10/2017/ [id number] Ambulatory Rober [place] 8 7 [facility] ing:WPOUTRoom Repository : WPOL 11/03/2017/ [id number] Sydnee, Inpatient Rober Rober 8 0 Summer Encounter [facility] ing:WPRoom: Repository MV653Hdw: 1 PAYERS PAYERS ENCOUNTER GUARANTOR PAYER SUBSCRIBER SOURCE 11/10/2017 ROBBY Kelly Primary NAHID [id number] [facility] [place] [id number]: Repository [id number]: [phone] [id number] [phone] () Date:0931-97-14[id number] [place] [id number]: 11/10/2017 Secondary NOT GIVENUNK [place] Insurance:SELF PAY [facility] Number: Effective Repository Date:2017-11-10 11/03/2017 ROBBY Kelly Primary NAHID [id number] [facility] [place] [id number] [id number] [place] [address] Number: Repository [id number]: [id number] [phone] Date:8030-12-29[address] ([place]) [address], [place] [address]IV: 11/03/2017 Secondary NOT GIVENUNK Rober Insurance:SELF PAY [facility]: Effective Repository Date:2017-10-31
--- NOTE | 2018-03-08 05:28 | PCM.HPOB.BLA ---
- Problem List (1) Moderate cervical dysplasia, histologically confirmed Status: Acute History and Physical Date of Admission: 03/08/18 Surgical History and Physical Date: 03/02/2018 Name: ROBBY SILVA Age: 32 Date of : 1985 Robby Silva, a 32 year old female 3 0 0 0 3, presents for LEEP on March 08, 2018 at 7:15. -- Robby is seen for her preop appointment. She is scheduled for a LEEP for CIN2. [facility] MEDICATIONS HISTORY: ALLERGIES: NKDA Infections - Chicken pox, [place], Scarlet Fever and HPV Illnesses - None Accidents - no injuries of consequence Hospitalizations - Childbirth and see surgery Condyloma, recently quit smoking; Review of Systems: GENERAL - Denies fever, or chills SKIN - Denies skin changes EYES - Denies visual changes EARS - Denies difficulty hearing NOSE - Denies nasal congestion or bleeding MOUTH - Denies sore throat or difficulty swallowing NECK - Denies pain or swelling RESPIRATORY - Denies shortness of breath or wheezing CARDIOVASCULAR - Denies palpitations or chest pain GASTROINTESTINAL - Denies nausea, vomiting, diarrhea, constipation GENITOURINARY - Denies dysuria, frequency of urination, incontinence of urine MUSCULOSKELETAL - Denies joint or muscle pain NEUROLOGICAL - Denies localized numbness or weakness PSYCHIATRIC - Denies depression or anxiety ENDOCRINE - Denies heat or cold intolerance, weight loss or gain HEMATO-IMMUNOLOGIC - Denies excesive bleeding with cuts SOCIAL HISTORY: Alcohol Use - socially not while Smoking - Quit in May 2014. Diet - balanced Diet, caffeine > 2 drinks per day and water intake tries to drink 64 oz daily. Lifestyle - Exercise - active Seat Belt Use - always Employer - [employer] in [employer] Job Description - Teacher Illicit Drug Use - denies use of street drugs Sexual Activity - multiple sexual partners Residence - lives w/ Place of - [facility] Hours Worked - 33-40 Spouse-Sig Other Name - Gonzalo Silva Spouse-Sig Other Occupation - Blind Aide @ [employer] in [place] Spouse-Sig Other Phone No - [phone] Children Name(s) - Luis Angel Sheth Luna Control - Prior Tubal FAMILY HISTORY: Maternal history of 2nd Cousin -- Breast Ca. Father: Valve Replacement in Heart. MENSTRUAL HISTORY: LMP Known?- DefiniteAmount/Duration - 8 days, Regularity - Regular, Frequency - monthly days, LMP - 02/16/18, Age Onset Menarche - 12 PAST PREGNANCIES: Total Pregnancies - 3; Full Term Pregnancies - 3; Premature - 0; Abortions, Induced - 0; Abortions, Spontaneous - 0; Ectopics - 0; Multiple Births - 0; Living Children - 3 SURGICAL HISTORY: 1. 11/03/2017 and Tubal ; Kristie Key MD - 2. [place] teeth revoved December 2012 ; - 3. T and A at age 5 ; - 4. 06/14/2016 ; Kristie Key MD - 5. 03/01/2015 primary ; Kristie Key MD - PHYSICAL EXAM BP- 102/66 Sitting, Right arm, regular cuff Temp- 98.3 Taken Orally Weight- 157.74304 lbs Height- 66.5 inch BMI:25.01 CONSTITUTIONAL - NAD, well nourished, and well developed SKIN - No rash, lesions, or ulcers HEENT - normocephalic, atraumatic, sclerae anicteric LUNGS - CTA x2 without wheezes, crackles or rales CARDIAC - Regular rate and rhythm without rubs, murmurs, or gallops BREAST - No dominant masses, no tenderness, no axillary adenopathy, no nipple discharge, no skin changes ABDOMEN - Without hepatosplenomegaly, distention, masses, rebound, or guarding; normal bowel sounds; no hernias EXTREMITIES - No edema or calf tenderness NEUROLOGICAL - normal gait, normal balance, normal motor PSYCHIATRIC - A and O to time, place, person, mood and affect External Genitial Vagina - non-tender without lesions Urethra/Urethral Meatus - non-tender Bladder - non-tender Vagina - vaginal schulz are pink and moist without loss of rugae and no evidence of atropy Cervix - without cervical motion tenderness and has normal size and features without evident lesions Uterus - 5-6 cm in size, mobile and nontender Adnexa - clear without massess or tenderness Pap - ASCUS, negative HRHPV 02/15/18 PATHOLOGY: A. Cervical biopsy at 4:00: - Transition zone, with acutely inflamed low-grade squamous intraepithelial lesion (SUZAN I) . B. Cervical biopsy at 12:00: - Squamous mucosa, portions possibly metaplastic, with high-grade squamous intraepithelial lesion (SUZAN II). . C. ECC: - Very limited superficial endocervical and squamous epithelium, without diagnostic alterations (negative for squamous intraepithelial lesion, dysplasia, and malignancy). - Small sample of proliferative endometrium (negative for hyperplasia, atypia, and neoplasia). ASSESSMENT/PLAN: 1. Personal History of Cervical Dysplasia Pathology confirms CIN2 - worsening from prior Plan for LEEP as previously recommended - risks, benefits, indications, alternatives reviewed Reviewed how performed, anticipated oupatient hospitalization and recovery Advised smoking cessation Consents signed and reviewed Contraception - post tubal sterilization Pt given opportunity to ask questions and questions answered to her satisfaction.
--- NOTE | 2018-03-08 05:36 | HP.PCM_ITS ---
- Problem List (1) Moderate cervical dysplasia, histologically confirmed Status: Acute History and Physical Date of Admission: 03/08/18 Surgical History and Physical Date: 03/02/2018 Name: ROBBY SILVA Age: 32 Date of : 1985 Robby Silva, a 32 year old female 3 0 0 0 3, presents for LEEP on March 08, 2018 at 7:15. -- Robby is seen for her preop appointment. She is scheduled for a [facility] MEDICATIONS HISTORY: ALLERGIES: NKDA Infections - Chicken pox, [place], Scarlet Fever and HPV Illnesses - None Accidents - no injuries of consequence Hospitalizations - Childbirth and see surgery Condyloma, recently quit smoking; Review of Systems: GENERAL - Denies fever, or chills SKIN - Denies skin changes EYES - Denies visual changes EARS - Denies difficulty hearing NOSE - Denies nasal congestion or bleeding MOUTH - Denies sore throat or difficulty swallowing NECK - Denies pain or swelling RESPIRATORY - Denies shortness of breath or wheezing CARDIOVASCULAR - Denies palpitations or chest pain GASTROINTESTINAL - Denies nausea, vomiting, diarrhea, constipation GENITOURINARY - Denies dysuria, frequency of urination, incontinence of urine MUSCULOSKELETAL - Denies joint or muscle pain NEUROLOGICAL - Denies localized numbness or weakness PSYCHIATRIC - Denies depression or anxiety ENDOCRINE - Denies heat or cold intolerance, weight loss or gain HEMATO-IMMUNOLOGIC - Denies excesive bleeding with cuts SOCIAL HISTORY: Alcohol Use - socially not while Smoking - Quit in May 2014. Diet - balanced Diet, caffeine > 2 drinks per day and water intake tries to drink 64 oz daily. Lifestyle - Exercise - active Seat Belt Use - always Employer - [employer] in [employer] Job Description - Teacher Illicit Drug Use - denies use of street drugs Sexual Activity - multiple sexual partners Residence - lives w/ Place of - [facility] Hours Worked - 33-40 Spouse-Sig Other Name - Gonzalo Silva Spouse-Sig Other Occupation - Weld Fitter @ [employer] in [place] Spouse-Sig Other Phone No - [phone] Children Name(s) - Luis Angel Sheth Luna Control - Prior Tubal FAMILY HISTORY: Maternal history of 2nd Cousin -- Breast Ca. Father: Valve Replacement in Heart. MENSTRUAL HISTORY: LMP Known?- DefiniteAmount/Duration - 8 days, Regularity - Regular, Frequency - monthly days, LMP - 02/16/18, Age Onset Menarche - 12 PAST PREGNANCIES: Total Pregnancies - 3; Full Term Pregnancies - 3; Premature - 0; Abortions, Induced - 0; Abortions, Spontaneous - 0; Ectopics - 0; Multiple Births - 0; Living Children - 3 SURGICAL HISTORY: 1. 11/03/2017 and Tubal ; Kritsie Key MD - 2. [place] teeth revoved December 2012 ; - 3. T and A at age 5 ; - 4. 06/14/2016 ; Kristie Key MD - 5. 03/01/2015 primary ; Kristie Key MD - PHYSICAL EXAM BP- 102/66 Sitting, Right arm, regular cuff Temp- 98.3 Taken Orally Weight- 157.81558 lbs Height- 66.5 inch BMI:25.01 CONSTITUTIONAL - NAD, well nourished, and well developed SKIN - No rash, lesions, or ulcers HEENT - normocephalic, atraumatic, sclerae anicteric LUNGS - CTA x2 without wheezes, crackles or rales CARDIAC - Regular rate and rhythm without rubs, murmurs, or gallops BREAST - No dominant masses, no tenderness, no axillary adenopathy, no nipple discharge, no skin changes ABDOMEN - Without hepatosplenomegaly, distention, masses, rebound, or guarding; normal bowel sounds; no hernias EXTREMITIES - No edema or calf tenderness NEUROLOGICAL - normal gait, normal balance, normal motor PSYCHIATRIC - A and O to time, place, person, mood and affect External Genitial Vagina - non-tender without lesions Urethra/Urethral Meatus - non-tender Bladder - non-tender Vagina - vaginal schulz are pink and moist without loss of rugae and no evidence of atropy Cervix - without cervical motion tenderness and has normal size and features without evident lesions Uterus - 5-6 cm in size, mobile and nontender Adnexa - clear without massess or tenderness Pap - ASCUS, negative HRHPV 02/15/18 PATHOLOGY: A. Cervical biopsy at 4:00: - Transition zone, with acutely inflamed low-grade squamous intraepithelial lesion (SUZAN I) . B. Cervical biopsy at 12:00: - Squamous mucosa, portions possibly metaplastic, with high-grade squamous intraepithelial lesion (SUZAN II). . C. ECC: - Very limited superficial endocervical and squamous epithelium, without diagnostic alterations (negative for squamous intraepithelial lesion, dysplasia, and malignancy). - Small sample of proliferative endometrium (negative for hyperplasia, atypia, and neoplasia). ASSESSMENT/PLAN: 1. Personal History of Cervical Dysplasia Pathology confirms CIN2 - worsening from prior Plan for LEEP as previously recommended - risks, benefits, indications, alternatives reviewed Reviewed how performed, anticipated oupatient hospitalization and recovery Advised smoking cessation Consents signed and reviewed Contraception - post tubal sterilization Pt given opportunity to ask questions and questions answered to her satisfaction.
[2018-03-08 09:09] VITALS: BP 101/69; PULSE 52; RESP 16; TEMP 36.6; O2SAT 99; BMI 24.4
--- NOTE | 2018-03-08 10:45 | CONE_PTH ---
PATIENT: ROBBY DAWSON LOC: [facility] [place] U#:[id number] AGE/SX: 32/F ROOM: RE03/08/[address]: Dr. Kristie Key MD : 1985 BED: DIS: 03/08/2018 SPEC #: [id number] RECD: 03/08/18 14:50 STATUS: MARY ANN STEFANY #: [id number] CYNTHIA: 03/08/18 10:[address]: Kristie Pineda DEPT: SURGICAL PATHOLOGY RECD BY: Usama Oconnell ENTERED: 03/09/18 05:02 SP TYPE: Leep Cone VERNON DR: Ginette Primary Care Phys Tissues: A - UTERINE CERVIX LEEP B - UTERINE CERVIX LEEP C - Endocervical Procedures: Surgery Specimen Level IV Surgery Specimen Level V HEADER OPERATION: LEEP cone PRE-OP DIAGNOSIS: Cervical dysplasia TISSUE SUBMITTED: A - Ectocervix open at 12, B - Top hat open at 6, C - Endocervical curettings MICROSCOPIC DIAGNOSIS A. Ectocervix, LEEP conization: Negative for dysplasia. Acute and chronic inflammation. B. Top hat, LEEP conization: Negative for dysplasia. C. Endocervical curettings: A cauterized fragment of tissue, insufficient for further evaluation. SJ:rg 03/09/18 MICROSCOPIC DESCRIPTION Slides are reviewed. GROSS DESCRIPTION A - Received in fixative is one container labeled with the patient's name and designated ectocervix open at 12. The specimen consists of a perez, indurated piece of conization measuring 2 x 1.5 cm and up to 0.3 cm in thickness. No mucosal lesion is identified. The nonmucosal surface is inked black. The endocervical margin is inked blue. The specimen is serially sectioned and submitted entirely in four cassettes as follows: 1 - 12-3 o'clock, 2 - 3-6 o'clock, 3 - 6-9 o'clock, 4 - 9-12 o'clock. B - Received in fixative is one container labeled with the patient's name and designated top hat open at 6. The specimen consists of a perez, indurated piece of tissue measuring 2.5 x 0.6 x 0.2 cm. No mucosal lesion is identified. The nonmucosal surface is inked black. The specimen is submitted in two cassettes as follows: 1 - 6-12 o'clock including 9 o'clock margin, 2 - 12-6 o'clock including 3 o'clock margin. C - Received in fixative is one container labeled with the patient's name and designated endocervical curettings. The specimen consists of multiple fragments of perez mucoid tissue that in aggregate measure 0.5 x 0.2 x 0.1 cm. The specimen is totally submitted in one cassette. / SJ:rg 03/08/18 TC:5 CPT: 94677 x2, 78991
--- NOTE | 2018-03-08 11:12 | PCM.OPRPT ---
Problem List (1) Moderate cervical dysplasia, histologically confirmed Status: Acute Comment: SUZAN 2 Report of Operation Date of Procedure: 03/08/18 Pre-Operative Diagnosis: CIN2 Post-Operative Diagnosis: CIN2 Surgery/Procedure Performed:: LEEP Description of Surgical Findings:: Lugol's resistance at 12 o'clock Type of Anesthesia:: Local MAC Anesthesiologist: Niko Charlton Specimen's removed: 1. ectocervix. 2. top hat. 3. ECC Estimated Blood Loss (mL): 10 Fluids Replaced: 1000 ml Description of Procedure: Indications: Ms. Serrano is a 31-year-old para 3 with a history of cervical intraepithelial neoplasia neoplasia grade 2. This was worsened from prior colposcopy. Following counseling she opted to proceed with LEEP excisional procedure. Risks, benefits, indications, alternatives were reviewed. Informed consent was obtained. Procedure: The patient was taken to the operating room and signed and was performed. She is placed in the dorsal supine position and induced under general anesthesia and LMA placed. She was then repositioned to dorsolithotomy. The perineum and vagina were prepped and draped in sterile fashion. An insulated speculum was placed into the vagina and the cervix visualized. A paracervical block was placed for total of 20 cc of 1% lidocaine with epinephrine 1 and 100,000 concentration. Lugol's solution was applied with some little resistance at 5:00. The LEEP was performed and followed by a top hat excision. ECC was also obtained. The LEEP margins were fulgurated and the excisional bed was further coagulated. Monsel solution was applied for additional hemostasis was stasis obtained. Sponge counts were correct x2. The patient is awakened extubated and transferred to the recovery room without complication. The patient tolerated the procedure well. - Complications None - Admit VTE Documentation VTE Present on Admission: No VTE Mechan Device Prophylaxis: SCD's VTE Pharm Prophylaxis ordered?: No
[2018-03-08 11:22] VITALS: BP 101/61; BP 95/61; PULSE 106; RESP 14; TEMP 36.4; O2SAT 99
--- NOTE | 2018-03-08 11:22 | DCINST_ITS ---
Discharge Diet: No Restrictions Discharge Activity: Return to Normal Activity, May not drive while taking narcotic pain medications., May Shower, - - No tub bath for 1-2 weeks, no intercourse, do not use tampons, no douching. Do not put anything in the vagina May resume sexual activity in: 4-6 weeks Lifting Restrictions: 20 lb Call your doctor if you observe: Fever of 101 or Higher, Using more than one pad per hour, Shortness of breath, Chest pain, Calf discomfort, Uncontrolled pain Allergies/Adverse Reactions: Allergies hydrocodone Adverse Reaction (Verified 03/01/18 08:20) Nausea Medications to take at Discharge Fish Oil/Dha/Epa [Fish Oil 1,200 mg Fish Oil] 1 each PO DAILY 10/31/17 Vitamin B Complex 1 each PO DAILY 10/31/17 Multivitamin [Daily Multiple Vitamin] 1 each PO DAILY 03/01/18 Psyllium Husk [Fiber] 0.52 gm PO DAILY 03/01/18 Ibuprofen 600 mg PO TID PRN #30 tablet 03/08/18 Oxycodone [Oxyir] 5 mg PO Q6H PRN PRN 2 Days #5 tablet 03/08/18 The following prescriptions were given: Oxycodone [Oxyir] 5 mg PO Q6H PRN PRN 2 Days #5 tablet PRN Reason: Severe Pain (6-10/10) Ibuprofen 600 mg PO TID PRN #30 tablet PRN Reason: Pain Primary Care Physician: Care Physician,No Primary [Primary Care Provider] - Test Results: Test results from this visit will be discussed in further detail at your follow- up appointment, if applicable. Please Follow Up With: Kristie Randhawa MD When: 2-4 weeks
[2018-03-08 11:31] VITALS: BP 101/61; BP 108/64; PULSE 100; RESP 14; O2SAT 100
[2018-03-08 11:48] VITALS: BP 101/61; BP 93/58; PULSE 99; RESP 16; TEMP 36.2; O2SAT 100
[2018-03-08 12:24] VITALS: BP 101/61; BP 102/54; PULSE 98; RESP 16; TEMP 36.3; O2SAT 100
== END 2018-03-08 12:26 | disposition home or self-care (01) ==
LOC: SDC 08:48 → AC 08:49
PROVIDERS: Visit Provider Obstetrics & Gynecology
PROC: 0UBC7ZZ Excision of Cervix, Via Natural or Artificial Opening (ICD-10-PCS; CPT 57522; principal; 2018-03-08 10:30)
DX: N87.1 Moderate cervical dysplasia (principal); Z87.891 Personal history of nicotine dependence
CPT/HCPCS: 00940; 57522; 36415; 85027; 85610; 85730; 86850; 86900; 88305; 88307; J7120; J2405

== ENCOUNTER 2018-06-07 07:07 | Day surgery (SDC) | payer OTHER, SELFPAY ==
[2018-04-04 09:03] VITALS: BMI 23.9
[2018-06-07] VITALS (10 sets, daily range): BP systolic 84–107; BP diastolic 40–60; PULSE 48–63; RESP 14–16; TEMP 36.1–36.9; O2SAT 98–100; BMI 23.3
[2018-06-07 07:47] LABS: Hematocrit 40.9 % (37-47); Hemoglobin 13.1 g/dl (12.0-15.0); Mean Corpuscular Hgb 28.7 pg (27.0-32.0); Mean Corpuscular Volume 89.5 fL (81-99); Mean Platelet Vol. 9.9 fl (6.2-12.0); Platelet Count 293 K/mm3 (150-450); RBC Distribution Width CV 13.2 % (11.6-14.6); Red Blood Count 4.57 M/mm3 (4.2-5.4); White Blood Count 5.4 K/mm3 (4.4-11.0)
[2018-06-07 07:50] LABS: Scan Indicated on CBC? Y/N NO
[2018-06-07 07:53] LABS: AST(SGOT) 11 U/L (15-37); Alanine Aminotransfer ALT/SGPT 18 U/L (13-56); Albumin, Serum 4.3 g/dL (3.2-5.0); Alkaline Phosphatase 78 U/L (45-117); Bilirubin, Direct 0.18 mg/dL (0.00-0.30); Globulin 3.2 g/dL (2.2-4.2); Protein, Total 7.5 g/dL (6.4-8.2)
--- NOTE | 2018-06-07 08:25 | BR_PTH ---
PATIENT: ROBBY DAWSON LOC: [facility] [place] U#:[id number] AGE/SX: 32/F ROOM: RE06/07/[address]: Dr. Jr Loco MD : 1985 BED: DIS: 06/08/2018 SPEC #: [id number] RECD: 06/08/18 14:24 STATUS: MARY ANN MCCALL #: [id number] CYNTHIA: 06/07/18 08:[address]: Jr Loco DEPT: SURGICAL PATHOLOGY RECD BY: Usama Oconnell ENTERED: 06/08/18 14:24 SP TYPE: MAMOPLASTY OTHR DR: Ginette Primary Care Phys Tissues: A - Right breast, NOS B - Left breast, NOS Procedures: Surgery Specimen Level IV HEADER OPERATION: Bilateral breast reduction mammoplasty PRE-OP DIAGNOSIS: Breast hypertrophy, chronic neck pain, chronic thoracic back pain, pain in shoulder TISSUE SUBMITTED: A - Right breast tissue, B - Left breast tissue MICROSCOPIC DIAGNOSIS A. Right breast tissue, breast reduction mammoplasty: Benign breast tissue (486 gm). Hyalinized fibroadenoma (1.2 cm in greatest dimension). Focal lactational changes. B. Left breast tissue, breast reduction mammoplasty: Benign breast tissue (487 gm). Focal lactational changes. KIT:radha 06/11/18 MICROSCOPIC DESCRIPTION Slides are reviewed. GROSS DESCRIPTION A - Received in fixative is one container labeled with the patient's name and designated right breast tissue. The specimen consists of multiple irregular fragments of perez-yellow fatty tissue with attached fragments of grossly unremarkable skin that in aggregate measure 22 x 18 x 5 cm and weighing in aggregate 486 gm. Serial sections reveal yellow-white firm cut surfaces. No distinct mass lesion is identified. No cutaneous lesions are present. Optical Store Manager sections are submitted in four cassettes. B - Received in fixative is one container labeled with the patient's name and designated left breast tissue. The specimen consists of multiple irregular fragments of perez-yellow fatty tissue with attached fragments of grossly unremarkable skin that in aggregate measure 21 x 20 x 3 cm and weighing in aggregate 487 gm. Serial sections reveal yellow-white firm cut surfaces. No distinct mass lesion is identified. No cutaneous lesions are present. Optical Store Manager sections are submitted in four cassettes. / AM:radha 06/08/18 TC:5 CPT: 38833 x2
[2018-06-07 08:31] LABS: Partial Thromboplast Time 29.4 Seconds (24.1-36.2); Prothrombin Time (Protime)PT. 13.4 SECONDS (11.7-14.9)
[2018-06-07] MEDS: Cefazolin 2 GM in 0.9% Normal Saline 100 ML IV (08:41)
[2018-06-07] MEDS: Methylene Blue 1% 100 MG/10 ML VIAL (09:30)
--- NOTE | 2018-06-07 13:59 | PCM.IMDPSTOP ---
Immediate Post-Op Note Date of Procedure: 06/07/18 Primary Surgeon/Physician: Jr Loco MD fisher lobster: Hilaria Franco. Pre-Operative Diagnosis: 1. Bilateral macromastia. 2. Neck pain. 3. Thoracic back pain. 4. Bilateral shoulder pain from shoulder grooving from the weight of the breasts on her bra straps. 5. Inframammary intertrigo. Post-Operative Diagnosis: Same. Surgery/Procedure Performed:: Bilateral breast reduction mammaplasty. Description of Surgical Findings:: 32 year old woman presents with complaints of bilateral macromastia as well as associated painful symptomatology of neck pain, thoracic back pain, bilateral shoulder pain from shoulder grooving from the weight of her breasts on her bra straps, and inframammary intertrigo for which she uses powders for relief. She denies any trauma to her breasts. Denies any nipple discharge. She has seen a chiropractor in the past for her back pain without much relief. She has not had a mammogram. She does not have a family history of breast cancer. She recently had a baby and has finished in early April. We have obtained medical approval for the breast reduction surgery. Today the patient underwent bilateral breast reduction mammaplasty. IV Fluids - 2700 ml. Urine Output - 1500 ml. Tissue removed from the left breast - 470 grams. Tissue removed from the right breast - 450 grams. I used Enrike absorbable hemostat, (I used 2 vials, one in each breast). Reference Number - [id number]. Lot Number - [id number]. Expiration - March 09, 2023. Estimated Blood Loss: 150 ml. Specimen's removed: 1. Left breast tissue to Pathology. 2. Right breast tissue to Pathology. Drains: Néstor x 2, (one in each breast). Type of Anesthesia:: General - Admit VTE Documentation VTE Present on Admission: No VTE Mechan Device Prophylaxis: SCD's VTE Pharm Prophylaxis ordered?: Yes
--- NOTE | 2018-06-07 14:02 | OP.PN_ITS ---
Immediate Post-Op Note Date of Procedure: 06/07/18 Primary Surgeon/Physician: Jr Loco MD fishing lure assembler: Hilaria Franco. Pre-Operative Diagnosis: 1. Bilateral macromastia. 2. Neck pain. 3. Thoracic back pain. 4. Bilateral shoulder pain from shoulder grooving from the weight of the breasts on her bra straps. 5. Inframammary intertrigo. Post-Operative Diagnosis: Same. Surgery/Procedure Performed:: Bilateral breast reduction mammaplasty. Description of Surgical Findings:: 32 year old woman presents with complaints of bilateral macromastia as well as associated painful symptomatology of neck pain, thoracic back pain, bilateral shoulder pain from shoulder grooving from the weight of her breasts on her bra straps, and inframammary intertrigo for which she uses powders for relief. She denies any trauma to her breasts. Denies any nipple discharge. She has seen a chiropractor in the past for her back pain without much relief. She has not had a mammogram. She does not have a family history of breast cancer. She recently had a baby and has finished in early April. We have obtained medical approval for the breast reduction surgery. Today the patient underwent bilateral breast reduction mammaplasty. IV Fluids - 2700 ml. Urine Output - 1500 ml. Tissue removed from the left breast - 470 grams. Tissue removed from the right breast - 450 grams. I used Enrike absorbable hemostat, (I used 2 vials, one in each breast). Reference Number - [id number]. Lot Number - [id number]. Expiration - March 09, 2023. Estimated Blood Loss: 150 ml. Specimen's removed: 1. Left breast tissue to Pathology. 2. Right breast tissue to Pathology. Drains: Néstor x 2, (one in each breast). Type of Anesthesia:: General - Admit VTE Documentation VTE Present on Admission: No VTE Mechan Device Prophylaxis: SCD's VTE Pharm Prophylaxis ordered?: Yes
[2018-06-07] MEDS: Cefazolin 1 GM/50 ML BAG IV (17:36)
[2018-06-07] MEDS: oxyCODONE 5 MG Tablet 10 MG PO ×2 (17:53→22:52)
--- NOTE | 2018-06-07 22:04 | OP.PCM_ITS ---
Report of Operation Date of Procedure: 06/07/18 Pre-Operative Diagnosis: 1. Bilateral macromastia. 2. Neck pain. 3. T horacic back pain. 4. Bilateral shoulder pain from shoulder grooving from the weight of the breasts on her bra straps. 5. Inframammary intertrigo. Post-Operative Diagnosis: Same. Surgery/Procedure Performed:: Bilateral breast reduction mammaplasty. Description of Surgical Findings:: 32 year old woman presents with complaints of bilateral macromastia as well as associated painful symptomatology of neck pain, thoracic back pain, bilateral shoulder pain from shoulder grooving from the weight of her breasts on her bra straps, and inframammary intertrigo for which she uses powders for relief. She denies any trauma to her breasts. Denies any nipple discharge. She has seen a chiropractor in the past for her back pain without much relief. She has not had a mammogram. She does not have a family history of breast cancer. She recently had a baby and has finished in early April. We have obtained medical approval for the breast reduction surgery. Patient was informed of the risks and complications of the procedure including alternatives to surgery. These were discussed with the patient personally. Patient voices understanding and wishes to proceed. Some of the risks and complications were included in a form from the [employer]. IV Fluids - 2700 ml. Urine Output - 1500 ml. Tissue removed from the left breast - 470 grams. Tissue removed from the right breast - 450 grams. I used Enrike absorbable hemostat, (I used 2 vials, one in each breast). Reference Number - [id number]. Lot Number - [id number]. Expiration - March 09, 2023. technical sales associate: Hilaria Franco. Type of Anesthesia:: General Specimen's removed: 1. Left breast tissue to Pathology. 2. Right breast tissue to Pathology. Drains: Néstor x 2, (one in each breast). Estimated Blood Loss (mL): 150 ml. Fluids Replaced: 4200 ml (IV Fluids 2700 ml, Urine Output 1500 ml). Description of Procedure: The patient was taken to the operating room and in the sitting position, preoperative markings were made. The sternum midline was marked down to the umbilicus. The inframammary folds were marked bilaterally. The midclavicular line was then marked down to the nipple, then from the nipple to the inframammary fold. The inframammary fold was then superimposed on the midclavicular line and I made a point 1 cm below that to be the new position of the nipple-areolar complex. 7 cm lines were then drawn divergent from that point to encompass the nipple-areolar complex. The distance between the divergent lines was 9 cm. The patient was then placed in the supine position and placed under general anesthesia and her breasts were prepped and draped in usual fashion. SCDs were placed for DVT prophylaxis. Perioperative antibiotics were given intravenously. A Johnston catheter was also placed. I then tattooed the preoperative markings with methylene blue and 25-gauge needle. I a lso tattooed the 12 o'clock position of the nipple-areolar complex to help with positioning of the nipple-areolar complex when it is brought through the keyhole incision at the end of the procedure to minimize kinking and twisting of the central breast mound pedicle. I then maryann straight lines down from the lines drawn divergent around the nipple-areolar complex down to the inframammary fold. The width of the pedicle is 9 cm. I then used a 42 mm circular template for a new size of the nipple-areolar complex. The central markings were infiltrated with Xylocaine and epinephrine. The central skin was then deepithelialized. I started on the right side first and then went to the left side. I then mobilized medial and lateral breast flaps at the level of Isabella's fascia down to within a centimeter of the chest wall. This was met in the midline of the breast with dissection at the level of Isabella's fascia down to within a centimeter of the chest wall. Once the central breast mound pedicle was from the skin envelope, the reduction was then begun. Most of the tissue was removed from the superior aspect of the breast and the lateral aspect of the breast. I then sutured the leading edge of the medial and lateral breast flaps to the midline of the inframammary fold. The vertical incision was approximated using surgical clips. The excess tissue from the medial and lateral breast flaps were excised and the horizontal incision was approximated using surgical clips. The patient was then placed in a sitting position. Using a vertical limb length of 4 cm, I maryann the new position of the new nipple-areolar complexes on both breasts. They were in good position on the central aspect of the breast mound. Good symmetry was noted between the left breast and the right breast. Good shape and contour and projection was noted. The patient was then placed back in the supine position and the surgical clips were removed. The breast wounds were then irrigated with saline. Hemostasis was obtained using electrocautery. The tissue removed from the left breast was 470 grams. The tissue removed from the right breast was 450 grams. The tissue that was removed from the breasts was sent to Pathology for analysis to rule out carcinoma. After hemostasis was obtained using electrocautery, I then sprayed Enrike absorbable hemostat into both breast wounds. I used one vial for each side. I then placed a size 15 Néstor drain into each breast wound to be brought through the lateral aspect of the horizontal incision. I then closed the breast wounds by first approximating the leading edge of the medial and lateral breast flaps to the midline inframammary fold with 2-0 Vicryl suture. The deep dermis and subcutaneous tissue of the vertical incision and the horizontal incisions were approximated using 3-0 Monocryl interrupted sutures. The horizontal incision was then approximated using 4-0 V-Loc unidirectional barbed running subcuticular suture. I also placed a few 4-0 Prolene vertical mattress interrupted sutures at the level of the Tzone. The vertical incision was then closed on the skin with 4-0 Prolene interrupted sutures. With a vertical limb length of 4 cm, I maryann a circular incision where the new nipple-areolar complex would be brought through the keyhole incision. Incisions were made and the nipple areolar complex was brought through the keyhole incision. The 12 o'clock position of the nipple-areolar complex was lined up with the 12 o'clock position of the breast skin. The nipple-areolar complex was secured to the breast skin using 3-0 Monocryl interrupted sutures for deep dermis and subcutaneous tissue. The skin was approximated using 4-0 Prolene simple interrupted sutures. This was then covered with Histoacryl skin tissue adhesive. I sutured the drain to the skin using 3-0 nylon suture. At the end of procedure, the breasts were soft with no evidence of vascular compromise. No evidence of hematomas were noted. The nipples were viable. I then dressed the breasts with a Kerlix gauze and a surgical bra. The patient tolerated the procedure well and will be sent to the recovery room in satisfactory condition. She will be admitted for surgical observation overnight stay. She will go home tomorrow once she is tolerating oral pain medication. I will remove the drains in a few days. She will be maintained on antibiotics until the drains are removed. She will keep her head elevated during the initial postoperative period. She will be maintained on a lifting restriction and keep her head elevated during the initial postoperative period. Postoperatively, she may get a compression sports bra as well. She will have the Johnston removed in the morning. She will be sent home on antibiotics and pain medicine for a few days. Sutures will be removed in 1-2 weeks. Grafts/Implants Used: None. - Complications None. - Admit VTE Documentation VTE Present on Admission: No VTE Mechan Device Prophylaxis: SCD's VTE Pharm Prophylaxis ordered?: Yes Code Visit Surgery Charges CPT - 00392 ICD-10 - N62, M54.2, M54.6, M25.519, L30.4 38217-03 N62, M54.2, M54.6, M25.519, L30.4
[2018-06-07] MEDS: diazePAM 2 MG Tablet PO (22:51)
[2018-06-07] MEDS: Docusate Sodium 100 MG Capsule PO (22:59)
[2018-06-08 00:22] VITALS: BP 92/73; PULSE 46; RESP 16; TEMP 36.4; O2SAT 94
[2018-06-08] MEDS: Cefazolin 1 GM/50 ML BAG IV ×3 (00:27→16:22)
[2018-06-08 05:10] VITALS: BP 86/44; PULSE 49; RESP 16; TEMP 36.7; O2SAT 98
[2018-06-08 06:22] VITALS: BP 86/44; PULSE 57; RESP 16; TEMP 36.6; O2SAT 100
[2018-06-08 06:30] LABS: Hematocrit 30.1 % (37-47); Hemoglobin 9.6 g/dl (12.0-15.0); Mean Corp Hgb Conc 31.9 g/gl (32-36); Mean Corpuscular Hgb 29.3 pg (27.0-32.0); Mean Corpuscular Volume 91.8 fL (81-99); Mean Platelet Vol. 10.4 fl (6.2-12.0); Platelet Count 238 K/mm3 (150-450); RBC Distribution Width SD 41.9 fl (35.1-43.9); Red Blood Count 3.28 M/mm3 (4.2-5.4); White Blood Count 8.1 K/mm3 (4.4-11.0)
[2018-06-08] MEDS: Lactated Ringers 1,000 ML 60 ML IV (06:31)
[2018-06-08 06:40] LABS: Scan Indicated on CBC? Y/N NO
[2018-06-08 07:10] LABS: Prealbumin 19.9 mg/dL (20.0-40.0)
[2018-06-08] MEDS: Enoxaparin 30 MG/0.3 ML Syringe SC (07:30)
[2018-06-08 08:46] VITALS: BP 87/35; PULSE 53; RESP 16; TEMP 36.9; O2SAT 98
[2018-06-08] MEDS: Vitamin B Comp W-C Capsule 1 CAP PO (08:54)
[2018-06-08] MEDS: Omega-3 Acid Ethyl Esters 1 GM Capsule PO (08:54)
[2018-06-08] MEDS: Docusate Sodium 100 MG Capsule PO (08:54)
[2018-06-08] MEDS: Psyllium 1 PACKET PO (08:55)
[2018-06-08] MEDS: oxyCODONE 5 MG Tablet 10 MG PO ×2 (08:59→16:26)
[2018-06-08 11:00] VITALS: BP 85/44; PULSE 64; RESP 14; TEMP 36.6; O2SAT 100
[2018-06-08] MEDS: Lactated Ringers 1,000 ML 125 ML IV (13:00)
[2018-06-08 14:00] VITALS: BP 94/39; PULSE 53; RESP 16; TEMP 36.8; O2SAT 98
--- NOTE | 2018-06-08 17:20 | PCM.PN.SRG ---
Subjective: Postop #1 Patient is resting comfortably. - Physical Exam General: Alert, Oriented x3 HEENT: PERRLA, EOMI Oral: Moist Mucosa Neck: Supple Abdomen: Soft, Non-Distended Skin: Incision - Breast incisions are dry and intact. Breasts are soft and symmetrical. Nipples are viable. No clinical evidence of hematoma. Neurological: Cranial nerves II-XII grossly intact Psych/Mental Status: Normal Affect, Appropriate Vital Signs Temp Pulse Resp BP Pulse Ox 98.2 F 53 L 16 94/39 L 98 06/08/18 14:00 06/08/18 14:00 06/08/18 14:00 06/08/18 14:00 06/08/18 14:00 Oxygen Delivery Method Room Air Weight: 148 lb 9.465 oz Body Mass Index (BMI) 23.3 Intake and Output for Last 24 Hours 06/06/18 06/07/18 06/08/18 23:59 23:59 23:59 Intake Total 4338 / 4338 4655 / 4655 Output Total 1979 / 1979 4365 / 4365 Balance 2358 / 2358 290 / 290 Drainage 130 ml yesterday, 215 ml today. Laboratory Tests Past 24 Hrs 06/08/18 06/08/18 06:06 06:06 WBC 8.1 RBC 3.28 L Hgb 9.6 L Hct 30.1 L MCV 91.8 MCH 29.3 MCHC 31.9 L RDW 13.0 RDW Differential 41.9 Plt Count 238 MPV 10.4 Prealbumin 19.9 L Medical Necessity - Tobacco Use Smoking Status: Former smoker Tobacco Use: Non-smoker Assessment/Plan All Active Problems (Last Updated 04/04/18 @ 08:55 by Ev Cantrell) 39 weeks gestation of (Acute) Request for sterilization (Acute) Moderate cervical dysplasia, histologically confirmed (Acute) delivery delivered (Acute) 1. Bilateral macromastia. 2. Neck pain. 3. Thoracic back pain. 4. Bilateral shoulder pain from shoulder grooving from the weight of the breasts on her bra straps. 5. Inframammary intertrigo. 6. s/p bilateral breast reduction mammaplasty. Breasts are soft and symmetrical. Incisions are dry and intact. No clinical evidence of hematoma. Nipples are viable. She is tolerating po analgesia. Discharge home today. Keep head elevated. Continue 20 lb lifting restriction. Followup 06/11/18 for drain removal. Will remove the sutures in 1-2 weeks. Wrote script for Cefadroxil for 5 days until the drains are removed. Wrote script for Percocet for pain (50 tabs).
--- NOTE | 2018-06-08 17:23 | PCM.DC ---
You will use the following diet at home:: No restrictions Discharge Activity: May not drive while taking narcotic pain medications., May Not Shower - until drains are removed., - - head elevated. no heavy lifting. May shower in (days): 3 - when the drains are removed. May resume sexual activity in: No Restrictions Lifting Restrictions: 20 lbs. Keep extremity elevated above heart level: - - elevate head. Call your doctor if your incision/area has: Continuous Slow Oozing, Sudden Increased Bleeding, Increased Pain/ Swelling, Increased Redness, Foul Smelling Discharge, Swelling at the incision site Call your doctor if you observe: Fever of 101 or Higher, Coldness, Increased Pain, Shortness of breath, Chest pain, Calf discomfort, Uncontrolled pain Suture Line Care: - - dry dressing daily. Change Dressing in (Days):: 1 - dry dressing daily. Cleanse incision/area with: - - may get incisions wet in the shower when the drains are removed in the office. Drain: Suction - wiley drains x2 to bulb suction. empty and record output daily. Allergies/Adverse Reactions: Allergies hydrocodone Adverse Reaction (Verified 05/31/18 15:14) Nausea Medications to take at Discharge Fish Oil/Dha/Epa [Fish Oil 1,200 mg Fish Oil] 1 each PO DAILY 10/31/17 Vitamin B Complex 1 each PO DAILY 10/31/17 Psyllium Husk [Fiber] 0.52 gm PO DAILY 03/01/18 Cefadroxil [Duricef] 500 mg PO BID #10 cap 06/08/18 Oxycodone HCl/Acetaminophen [Percocet 5/325] 1 - 2 tab PO 4X/DAY PRN PRN 7 Days #50 tab 06/08/18 The following prescriptions were given: Oxycodone HCl/Acetaminophen [Percocet 5/325] 1 - 2 tab PO 4X/DAY PRN PRN 7 Days #50 tab PRN Reason: Pain Cefadroxil [Duricef] 500 mg PO BID #10 cap Primary Care Physician: Care Physician,No Primary [Primary Care Provider] - Test Results: Test results from this visit will be discussed in further detail at your follow-up appointment, if applicable. Please Follow Up With: Jr Loco MD When: monday06/11/18. call [phone] for appt. Proposed Discharge Date: 06/08/18
--- NOTE | 2018-06-08 17:26 | DCINST_ITS ---
You will use the following diet at home:: No restrictions Discharge Activity: May not drive while taking narcotic pain medications., May Not Shower - until drains are removed., - - head elevated. no heavy lifting. May shower in (days): 3 - when the drains are removed. May resume sexual activity in: No Restrictions Lifting Restrictions: 20 lbs. Keep extremity elevated above heart level: - - elevate head. Call your doctor if your incision/area has: Continuous Slow Oozing, Sudden Increased Bleeding, Increased Pain/ Swelling, Increased Redness, Foul Smelling Discharge, Swelling at the incision site Call your doctor if you observe: Fever of 101 or Higher, Coldness, Increased Pain, Shortness of breath, Chest pain, Calf discomfort, Uncontrolled pain Suture Line Care: - - dry dressing daily. Change Dressing in (Days):: 1 - dry dressing daily. Cleanse incision/area with: - - may get incisions wet in the shower when the drains are removed in the office. Drain: Suction - wiley drains x2 to bulb suction. empty and record output daily. Allergies/Adverse Reactions: Allergies hydrocodone Adverse Reaction (Verified 05/31/18 15:14) Nausea Medications to take at Discharge Fish Oil/Dha/Epa [Fish Oil 1,200 mg Fish Oil] 1 each PO DAILY 10/31/17 Vitamin B Complex 1 each PO DAILY 10/31/17 Psyllium Husk [Fiber] 0.52 gm PO DAILY 03/01/18 Cefadroxil [Duricef] 500 mg PO BID #10 cap 06/08/18 Oxycodone HCl/Acetaminophen [Percocet 5/325] 1 - 2 tab PO 4X/DAY PRN PRN 7 Days #50 tab 06/08/18 The following prescriptions were given: Oxycodone HCl/Acetaminophen [Percocet 5/325] 1 - 2 tab PO 4X/DAY PRN PRN 7 Days #50 tab PRN Reason: Pain Cefadroxil [Duricef] 500 mg PO BID #10 cap Primary Care Physician: Care Physician,No Primary [Primary Care Provider] - Test Results: Test results from this visit will be discussed in further detail at your follow- up appointment, if applicable. Please Follow Up With: Jr Loco MD When: monday06/11/18. call [phone] for appt. Proposed Discharge Date: 06/08/18
== END 2018-06-08 18:10 | disposition home or self-care (01) ==
LOC: SDC 07:10 → AC 07:16 → MS2 09:24
PROVIDERS: Anesthesiology; Referring Provider Surgery; Visit Provider Surgery
PROC: 0H0U0ZZ Alteration of Left Breast, Open Approach (ICD-10-PCS; CPT 19318; principal; 2018-06-07 08:10)
DX: N62 Hypertrophy of breast (principal); D24.1 Benign neoplasm of right breast; M54.2 Cervicalgia; M54.6 Pain in thoracic spine; M25.512 Pain in left shoulder; M25.511 Pain in right shoulder; G89.29 Other chronic pain; L30.4 Erythema intertrigo; Z87.891 Personal history of nicotine dependence
CPT/HCPCS: 19318; 36415; 80076; 84134; 85027; 85610; 85730; 88305; J7120; J2405; J3490

== ENCOUNTER 2018-06-22 20:20 | Emergency (ER) | payer OTHER, SELFPAY ==
[2018-06-18 14:54] VITALS: BMI 23.3
[2018-06-22 20:21] VITALS: BP 114/80; PULSE 80; RESP 15; TEMP 36.4; BMI 23.1
[2018-06-22 20:45] VITALS: BP 116/68; PULSE 76; RESP 16; O2SAT 100
--- NOTE | 2018-06-22 20:45 | ED.VISSUMM ---
- ER Visit Summary Date of Service: 06/22/18 Chief Complaint: [Wound check] History of Present Illness: The patient is a 32 F [presents the emergency department with concern for possible wound infection after surgery. Patient states that she had a lateral breast reduction 2 weeks ago done by Dr. Jr Loco 2 weeks ago. Patient states that today she had some mild discomfort noted to the left breast and then she was accidentally head butted by a child at work in the left breast causing her increased discomfort. Patient throughout the day had smelled a little bit of a foul odor and she was not sure what was coming from but when she got home and undressed noted that she had some drainage from her left breast. Patient noticed some warmth to the area and some erythema. Patient denies any fevers.] Physical Examination: [HEENT-PERRLA, EOMI. Cranial nerves II through XII grossly intact. TMs clear. Mucous membranes moist. No adenopathy. Cardiovascular-regular rate and rhythm without murmur or ectopy. Lungs-clear to auscultation, chest wall stable without crepitus or subcu emphysema. Breast exam-at the T junction of the left breast there is a area of dehiscence measuring approximately 2 cm in length with small amount of brownish to yellowish discharge with some foul odor noted. There is some faint limited erythema and warmth noted. By compressing the breast that was not able to express any significant drainage. Abdomen-normoactive bowel sounds, soft, nontender, no rebound or rigidity, no peritoneal signs. Extremities-intact ?4, normal range of motion, normal pulses, atraumatic] Test Results: [None indicated] Emergency Department Course and Treatment: [I discussed case with Dr. Jr Loco who asked that I start patient on clindamycin and he will see the patient in the office in 2 days. He did not feel any imaging would be indicated at this point.] Treatment Plan: [Patient given clindamycin prescription. Patient advised to return if increasing pain, redness, swelling, or condition should worsen anyway.] Disposition: [Discharged home stable condition] Impression: [Postop wound infection left breast] This note was generated with [employer] software. It may contain incorrect words, spelling, and punctuation that were not noted in review of the chart prior to signing ED Disposition - Plan for ED Patient: Chief Complaint: Wound Check Referrals: Care Physician,No Primary [Primary Care Provider] -
[2018-06-22] MEDS: Clindamycin HCl 150 MG Capsule 300 MG PO (20:48)
--- NOTE | 2018-06-22 20:52 | ED.DEP ---
ED Disposition - Plan for ED Patient: Chief Complaint: Wound Check Instructions: ED Wound Infec After Surgery Prescriptions: Clindamycin HCl [Cleocin] 300 mg PO Q6H #40 cap Referrals: Care Physician,No Primary [Primary Care Provider] - Jr Loco MD [STAFF PHYSICIAN] - 2 Days
== END 2018-06-22 20:57 | disposition home or self-care (01) ==
LOC: ED 20:49
PROVIDERS: Emergency Provider Emergency Medicine
DX: T81.41XA Infection following a procedure, superficial incisional surgical site, initial encounter (principal); T81.31XA Disruption of external operation (surgical) wound, not elsewhere classified, initial encounter; Z72.0 Tobacco use
CPT/HCPCS: 87070; 87077; 87186; 87205; 99283

== ENCOUNTER → 2019-02-09 08:10 | Outpatient (CLI) | payer OTHER, SELFPAY ==
[2018-08-23 14:14] VITALS: BMI 23.1
[2019-02-09 09:49] LABS: Estradiol 183.3 pg/mL
[2019-02-12 10:23] LABS: Progesterone Level 18.95 ng/mL (See Comment)
== END ==
PROVIDERS: Referring Provider Obstetrics & Gynecology; Visit Provider Obstetrics & Gynecology
DX: N92.0 Excessive and frequent menstruation with regular cycle (principal)
CPT/HCPCS: 36415; 82670; 84144

== ENCOUNTER 2019-07-15 05:53 | Day surgery (SDC) | payer OTHER, SELFPAY ==
[2018-08-23 14:14] VITALS: BMI 23.1
[2019-07-10 16:51] LABS: Hematocrit 42.5 % (37-47); Hemoglobin 13.6 g/dL (12.0-15.0); Mean Corpuscular Hgb 28.9 pg (27.0-32.0); Mean Corpuscular Volume 90.2 fL (81-99); Mean Platelet Vol. 10.2 fl (6.2-12.0); Platelet Count 191 K/mm3 (150-450); RBC Distribution Width CV 12.9 % (11.6-14.6); RBC Distribution Width SD 42.5 fl (35.1-43.9); Red Blood Count 4.71 M/mm3 (4.2-5.4); White Blood Count 3.7 K/mm3 (4.4-11.0)
[2019-07-10 17:24] LABS: Partial Thromboplast Time 29.8 Seconds (24.1-36.2); Prothrombin Time (Protime)PT. 13.1 SECONDS (11.7-14.9)
[2019-07-10 17:33] LABS: EST Glomerular Filtration Rate 103 mL/min (>60); Est Glom Filt Rate - Afr Amer 124 mL/min (>60)
--- NOTE | 2019-07-14 16:33 | HP.PCM_ITS ---
History and Physical Date of Admission: 07/15/19 Surgical History and Physical Anu Serrano, a 33 year old female 3 0 0 0 3, presents for [facility] on July 15, 2019 at 7:30. -- Persistent High Grade Cervical Dysplasia -- Pt had LEEP done 03-08-18. No evidence of dysplasia on LEEP specimen. Now cervical dysplasia with recent SUZAN 1 on cervical polyp and at colposcopy with focus suspicious for HSIL. MEDICATIONS HISTORY: ALLERGIES: NKDA Infections - Chicken pox, Irion, Scarlet Fever and HPV Illnesses - None Accidents - no injuries of consequence Hospitalizations - Childbirth and see surgery Condyloma, recently quit smoking; Review of Systems: GENERAL - Denies fever, or chills SKIN - Denies skin changes EYES - Denies visual changes EARS - Denies difficulty hearing NOSE - Denies nasal congestion or bleeding MOUTH - Denies sore throat or difficulty swallowing NECK - Denies pain or swelling RESPIRATORY - Denies shortness of breath or wheezing CARDIOVASCULAR - Denies palpitations or chest pain GASTROINTESTINAL - Denies nausea, vomiting, diarrhea, constipation GENITOURINARY - Denies dysuria, frequency of urination, incontinence of urine MUSCULOSKELETAL - Denies joint or muscle pain NEUROLOGICAL - Denies localized numbness or weakness PSYCHIATRIC - Denies depression or anxiety ENDOCRINE - Denies heat or cold intolerance, weight loss or gain HEMATO-IMMUNOLOGIC - Denies excesive bleeding with cuts SOCIAL HISTORY: Alcohol Use - drinks occasionally Smoking - Quit in May 2014. Diet - balanced Diet, caffeine > 2 drinks per day and water intake tries to drink 64 oz daily. 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 Father: Valve Replacement in Heart. MENSTRUAL HISTORY: LMP Known?- DefiniteAmount/Duration - 6-7 DAYS, Regularity - Regular, Frequency - monthly days, LMP - 05/04/19, Age Onset Menarche - 12 PAST PREGNANCIES: Total Pregnancies - 3; Full Term Pregnancies - 3; Premature - 0; Abortions, Induced - 0; Abortions, Spontaneous - 0; Ectopics - 0; Multiple Births - 0; Living Children - 3 SURGICAL HISTORY: 1. 11/03/2017 and Tubal ; Kristie Key MD - 2. [place] teeth revoved December 2012 ; - 3. T and A at age 5 ; - 4. breast reduction 06/07/2018 ; - 5. 03/08/2018 LEEP ; Kristie Key MD - 6. 06/14/2016 ; Kristie Key MD - 7. 03/01/2015 primary ; Kristie Key MD - PHYSICAL EXAM BP- 102/62 Sitting, Right arm, regular cuff Weight- 142.93128 lbs Height- 66.8543 inch BMI:22.38 CONSTITUTIONAL - NAD, well nourished, and well developed SKIN - No rash, lesions, or ulcers HEENT - normocephalic, atraumatic, sclerae anicteric LUNGS - normal respiratory rate and rhythm EXTREMITIES - No edema or calf tenderness NEUROLOGICAL - normal gait, normal balance, normal motor PSYCHIATRIC - A and O to time, place, person, mood and affect External Genitial Vagina - non-tender without lesions Urethra/Urethral Meatus - non-tender Bladder - non-tender Vagina - vaginal schulz are pink and moist without loss of rugae and no evidence of atropy Cervix - deferred Uterus - deferred Adnexa - deferred ASSESSMENT/PLAN: Low Grade Squamous Intraepithelial Lesion On Cytologic Smear Of Cervix (lgsil) Pathology reviewed - CIN1, foci suspicious for high grade lesion however. Recommend hysterectomy given persistence of lesions and presence of high grade foci - reviewed surgical r/b/i, anticipated hospitalization and recovery. Plan for robotic TLH, bilateral salpingectomy with Dr. valdez if patient desires
[2019-07-15] VITALS (12 sets, daily range): BP systolic 83–110; BP diastolic 40–64; PULSE 44–64; RESP 14–18; TEMP 36.4–37.1; O2SAT 95–100; BMI 22.3; BMI 22.2
--- NOTE | 2019-07-15 | IMM_PTH ---
PATIENT: ROBBY DAWSON LOC: [facility] U#:[id number] AGE/SX: 33/F ROOM: RE07/15/[address]: Dr. Buck Bustillo MD : 1985 BED: DIS: 07/16/2019 SPEC #: [id number] RECD: 07/16/19 12:18 STATUS: MARY ANN REJun #: [id number] CYNTHIA: 07/15/19 00:[address]: Buck Bustillo DEPT: IMMUNOHISTOCHEMISTRY RECD BY: Anne Falcon ENTERED: 07/16/19 12:19 SP TYPE: IMMUNO OTHR DR: No Primary Care Phys Tissues: Uterus, NOS Procedures: p16 (initial) KI-67 (add) PHYSICIAN & INSTITUTION [place] [id number] SPECIMEN INFORMATION: Tissue Source: Uterus Clinical Info: Persistent high grade cervical dysplasia Specimen Number: [id number] #11 CPT code: 52785, 77603 METHODOLOGY: Deparaffinized sections of prefer/formalin-fixed tissue or PAP/DQ stained slides are incubated with monoclonal/polyclonal antibodies/oligonucleotide probes. Localization is made via biotin free immunoperoxidase method. Appropriate controls are performed and reacted as expected. Results on target cell population are indicated in the following table: RESULTS: ANTIBODY / CLONE RESULT Block 11 P16 (E6H4) positive, focal and patchy Ki-67 (30-9) positive, low These tests were developed and their performance characteristics determined by [facility]. They may not have been cleared or approved by the U.S. Food and Drug Administration. The FDA has determined that such clearance or approval is not necessary. The above immunohistochemical/dualISH markers are ordered and reviewed by the Pathologist. INTERPRETATION: Uterus, hysterectomy: Focal mild squamous dysplasia. SJ:radha 07/17/19 Case has been reviewed in consultation with Dr. Howe who concurs with the above diagnosis. IDC:AM
[2019-07-15] MEDS: Lactated Ringers 1,000 ML 100 ML IV ×3 (06:27→10:54)
--- NOTE | 2019-07-15 07:30 | HYST_PTH ---
PATIENT: ROBBY DAWSON LOC: [facility] [place] U#:[id number] AGE/SX: 33/F ROOM: RE07/15/[address]: Dr. Buck Bustillo MD : [id number] BED: DIS: 07/16/2019 SPEC #: [id number] RECD: 07/15/19 13:21 STATUS: MARY ANN STEFANY #: [id number] CYNTHIA: 07/15/19 07:[address]: Buck Bustillo DEPT: SURGICAL PATHOLOGY RECD BY: Femi Narvaez ENTERED: 07/15/19 13:41 SP TYPE: HYSTERECT OTHR DR: No Primary Care Phys Tissues: Uterus, NOS Procedures: Surgery Specimen Level V HEADER OPERATION: Robotic assisted vaginal hysterectomy, bilateral salpingectomy PRE-OP DIAGNOSIS: Persistent high grade cervical dysplasia TISSUE SUBMITTED: Uterus, cervix, bilateral fallopian tubes MICROSCOPIC DIAGNOSIS Uterus, cervix, bilateral fallopian tubes, vaginal hysterectomy and bilateral salpingectomy: Cervix - focal mild squamous dysplasia (LGSIL and SUZAN I). - Chronic inflammation and squamous metaplasia. - Resection margins are free of dysplastic changes. Endometrium - secretory endometrium. Myometrium - no pathologic diagnosis. Bilateral fallopian tubes - no pathologic diagnosis. SJ:radha 07/16/19 COMMENT Immunohistochemistry ([id number]) for surrogate HPV marker (p16) supports the above diagnosis. Case has been reviewed in consultation with Dr. Howe who concurs with the above diagnosis. IDC:AM MICROSCOPIC DESCRIPTION Slides are reviewed. GROSS DESCRIPTION Received in fixative is one container labeled with the patient's name and designated uterus. The specimen consists of a uterus with attached cervix and attached right and left fallopian tubes. The uterus with cervix measures 7.4 x 5 x 3.7 cm and weighs 67 gm. The cervical os is round in contour. No gross cervical lesions are identified. The endocervical canal measures 3.3 cm in length and is grossly unremarkable. The paracervical soft tissue is inked in blue ink. The cervix is amputated from the uterus. The plane of amputation is inked in red ink. The triangular endometrial cavity measures 3.5 x 2.7 cm. The endometrium is light perez, velvety and glistening and measures up to 0.2 cm in thickness. The myometrium measures 1.7 cm in greatest thickness and is free of mass lesions. The right and left fallopian tubes are similar in appearance with average lengths of 5.5 cm and maximal diameters of 0.5 cm. Both fallopian tubes are discontinuous and consistent with previous tubal ligation. Normal fimbriated ends are present. Dehydrogenation Converter Operator sections are submitted in 12 cassettes as follows: 1 - right fallopian tube, 2 - left fallopian tube, 3 & 4 - anterior uterine wall, 5 & 6 - posterior uterine wall, 7 & 8 - cervix, 12 to 3 o'clock, 9 - cervix, 3 to 6 o'clock, 10 - cervix, 6 to 9 o'clock, 11 & 12 - cervix, 9 to 12 o'clock. Note, the entire cervix is submitted for microscopic examination. AM:radha 07/15/19 TC:5 CPT: 77894
--- NOTE | 2019-07-15 07:42 | PCM.OPRPT ---
Report of Operation Date of Procedure: 07/15/19 Pre-Operative Diagnosis: Persistent High Grade Cervical Dysplasia Post-Operative Diagnosis: Persistent High Grade Cervical Dysplasia Surgery/Procedure Performed:: Robotic Assisted Vaginal Hysterectomy and Bilateral Salpingectomy Description of Surgical Findings:: 8 cm uterus with normal-appearing fallopian tubes and ovaries. typists supervisor: Wiley Rivas Type of Anesthesia:: General - Endotracheal Anesthesiologist: Niko Charlton Specimen's removed: Uterus and bilateral fallopian tubes Drains: Johnston to straight drain Estimated Blood Loss (mL): 50 cc Fluids Replaced: Crystalloid Description of Procedure: Surgeon: Buck Bustillo MD, FACOG Indication: This is a 33 year old patient who has been having problems with persistent high-grade dysplasia. Conservative measures have not been helpful. The patient has been counseled regarding the risks, benefits and alternatives of this procedure including the possibility of bleeding, infection, and injury to surrounding structures such as bowel bladder and all questions were answered. She understands that if BSO is needed that she will need to be on HRT for an indefinite period of time. Procedure: Pt taken to the operating room where, after induction of general anesthesia, the patient was prepped and draped in the usual sterile fashion and placed on a non-slip Huggy-u-vac device. Trendelenburg test was satisfactory. Bladder was drained of urine with a Johnston catheter which was left in place. Anterior cervix grasped and cervix was dilated to about 3-4 mm. Uterus sounded to 9 cms. 0-Vicryl suture was placed at the 3:00 and 9:00 position of the cervix. A small Advincula Kitchen [employer] Bath Designer Uterine Manipulator was then placed in the uterus and attention was turned to the laparoscopic portion of the procedure. Ropivocaine 0.5% was injected approximately 2-3 cm superior to the umbilicus and an 8 mm robotic camera port was introduced directly with intraperitoneal placement confirmed with CO2 insufflation. 8 mm robotic side ports were introduced under direct visualization approximately 10 cm lateral and 2 cm inferior to the umbilical port. A 5 mm left upper quadrant port was introduced and airseal insufflation with CO2 was started. The above findings were noted. Robot was docked without difficulty and attention turned to the robotic portion of the procedure. Approximately 20 cc of Ropivicaine was used. Bilateral infundibulopelvic ligaments/mesosalpinx were ligated with 35 dennis bipolar coagulation to the level of the round ligament. The posterior aspect of the cervix was identified and then opened for about 1 cm using 25 watt monopolar cautery. Bladder flap was opened and divided to the level of the round ligaments using monopolar cautery. Progressive bites were then ligated on each side of the cervix with 35 dennis bipolar cautery to the uterine arteries. Some adhesions of the anterior bladder flap to the uterus were encountered from her prior sections. The anterior vaginal mucosa was entered and cervix circumscribed with monopolar cautery. Uterus and attached tubes were removed through the vagina. Vaginal cuff was closed first with 0-Vicryl Melyssa stitches placed at each angle followed by closure of the mid-cuff with 0-Monocryl V-lock suture in two layers. Pelvis was copiously irrigated with saline and the right and left ureter were noted to peristalse. Robot was undocked and trocars were removed with as much gas as possible. Incisions were closed with 4-0 Monocryl subcuticular sutures and incisions covered with steri-strips. The patient tolerated the procedure well and was taken to the recovery room in satisfactory condition. Sponge, instruments and needle counts were all correct. There were no apparent complications of the surgery. Cefotan 2 gms IV was given prior to the procedure. Estimated Blood Loss: 50 cc Specimen to Pathology: Uterus and bilateral fallopian tubes Grafts/Implants Used: None - Complications None - Admit VTE Documentation VTE Present on Admission: Yes VTE Mechan Device Prophylaxis: SCD's VTE Pharm Prophylaxis ordered?: Yes
--- NOTE | 2019-07-15 07:46 | DCINST_ITS ---
Discharge Diet: No Restrictions Discharge Activity: Return to Normal Activity, May Not Drive - while taking narcotic pain medications., May Shower, May Take a Tub Bath May resume sexual activity in: 6-8 weeks Call your doctor if your incision/area has: Continuous Slow Oozing, Sudden Inc reased Bleeding, Increased Pain/ Swelling, Increased Redness, Foul Smelling Discharge Call your doctor if you observe: Fever of 101 or Higher, Inability to urinate, Inability to have a bowel movement, Using more than one pad per hour Allergies/Adverse Reactions: Allergies hydrocodone Adverse Reaction (Verified 07/15/19 06:17) Nausea Medications to take at Discharge Vitamin B Complex 1 ea PO DAILY 10/31/17 Lysine [l-Lysine] 1,000 mg PO DAILY 06/22/18 Docusate Sodium [Colace] 100 mg PO BID PRN PRN #60 cap 07/15/19 Oxycodone [Oxyir] 5 mg PO Q6H PRN PRN 7 Days #14 tablet 07/15/19 The following prescriptions were given: Docusate Sodium [Colace] 100 mg PO BID PRN PRN #60 cap PRN Reason: Constipation Transmission Status: Pending to [id number] Oxycodone [Oxyir] 5 mg PO Q6H PRN PRN 7 Days #14 tablet PRN Reason: Pain Score 6-10/10 Transmission Status: Received by [id number] Primary Care Physician: Care Physician,No Primary [Primary Care Provider] - Test Results: Test results from this visit will be discussed in further detail at your follow- up appointment, if applicable. Please Follow Up With: Buck Bustillo MD When: 2 to 3 weeks
[2019-07-15] MEDS: Ropivacaine 0.5% 30 ML Vial (08:30)
[2019-07-15] MEDS: Dextrose 5%-Lactated Ringers 1,000 ML 150 ML IV ×2 (11:42→20:55)
[2019-07-15] MEDS: HYDROmorphone 0.5 MG/0.5 ML SYRINGE IV (11:56)
[2019-07-15] MEDS: Ketorolac 30 MG/ML Syringe IV ×2 (16:11→21:24)
[2019-07-15] MEDS: Enoxaparin 30 MG/0.3 ML Syringe SC (17:48)
[2019-07-15] MEDS: Acetaminophen 500 MG Tablet 1000 MG PO (17:50)
[2019-07-15] MEDS: 0.9% Saline Lock 10 ML Syringe IV (21:23)
[2019-07-16] MEDS: 0.9% Saline Lock 10 ML Syringe IV ×2 (00:34→03:13)
[2019-07-16] MEDS: Ondansetron 4 MG/2 ML Vial IV (00:34)
[2019-07-16 00:39] VITALS: BP 98/48; PULSE 47; RESP 16; O2SAT 98
[2019-07-16] MEDS: Ketorolac 30 MG/ML Syringe IV (03:13)
[2019-07-16] MEDS: Dextrose 5%-Lactated Ringers 1,000 ML 150 ML IV (03:13)
[2019-07-16 03:19] VITALS: BP 99/52; PULSE 51; RESP 16; TEMP 37.1; O2SAT 97
[2019-07-16 06:26] LABS: Hematocrit 31.4 % (37-47); Hemoglobin 10.2 g/dL (12.0-15.0); Mean Corp Hgb Conc 32.5 g/dL (32-36); Mean Corpuscular Hgb 28.7 pg (27.0-32.0); Mean Corpuscular Volume 88.2 fL (81-99); Mean Platelet Vol. 10.9 fl (6.2-12.0); Platelet Count 147 K/mm3 (150-450); RBC Distribution Width CV 12.6 % (11.6-14.6); Red Blood Count 3.56 M/mm3 (4.2-5.4)
[2019-07-16 06:43] LABS: Creatinine, Serum 0.66 mg/dL (0.55-1.02); EST Glomerular Filtration Rate 109 mL/min (>60); Est Glom Filt Rate - Afr Amer 132 mL/min (>60)
--- NOTE | 2019-07-16 08:14 | PCM.PN.OB ---
Subjective: Patient without complaints. Tolerating diet well. Positive flatus. Some nasal congestion. Family had similar symptoms last week. - Physical Exam Vitals/I&O's: Vital Signs Temp Pulse Resp BP Pulse Ox 98.8 F 51 L 16 99/52 L 97 07/16/19 03:19 07/16/19 03:19 07/16/19 03:19 07/16/19 03:19 07/16/19 03:19 Oxygen Delivery Method Room Air Weight: 142 lb Body Mass Index (BMI) 22.2 Intake and Output for Last 24 Hours 07/14/19 07/15/19 07/16/19 23:59 23:59 23:59 Intake Total 4483.33 / 4483.33 1082.5 / 1082.5 Output Total 605 / 605 600 / 600 Balance 3878.33 / 3878.33 482.5 / 482.5 Comment: Wound CDI. Good urine output. Hemoglobin and creatinine okay. Laboratory Results 07/16/19 06:00: WBC 8.0, RBC 3.56 L, Hgb 10.2 L, Hct 31.4 L, MCV 88.2, MCH 28.7, MCHC 32.5, RDW Std Deviation 41.0, RDW Coeff of Andrea 12.6, Plt Count 147 L, MPV 10.9 07/16/19 06:00: Creatinine 0.66, Estim Creat Clear Calc 119.00, Est GFR (MDRD) Af Amer 132, Est GFR (MDRD) Non-Af 109 Current Medications Acetaminophen (Tylenol) 1,000 mg PO Q8H PRN PRN PRN Reason: Pain Score 1-3/10 or Fever Last Admin: 07/15/19 17:50 Dose: 1,000 mg Documented by: Docusate Sodium (Colace) 100 mg PO BID PRN PRN PRN Reason: CONSTIPATION Hydromorphone HCl (Dilaudid Inj) 0.5 mg IV Q3H PRN PRN PRN Reason: Pain Score 4-10/10 Last Admin: 07/15/19 11:56 Dose: 0.5 mg Documented by: Dextrose/Lactated Ringer's () 1,000 mls @ 150 mls/hr IV .Q6H40M RENO Last Admin: 07/16/19 03:13 Dose: 150 mls/hr Documented by: Ketorolac Tromethamine (Toradol) 30 mg IV Q6H RENO Stop: 07/20/19 16:01 Last Admin: 07/16/19 03:13 Dose: 30 mg Documented by: Ondansetron HCl (Zofran) 4 mg IV Q4H PRN PRN PRN Reason: NAUSEA Last Admin: 07/16/19 00:34 Dose: 4 mg Documented by: Oxycodone HCl (Oxyir) 5 mg PO Q4H PRN PRN PRN Reason: Pain Score 4-10/10 Simethicone (Mylicon) 80 mg PO PCHS RENO Last Admin: 07/15/19 21:26 Dose: 80 mg Documented by: Sodium Chloride () 10 - 40 ml IV UD PRN PRN Reason: SALINE FLUSH Last Admin: 07/16/19 03:13 Dose: 10 ml Documented by: Medical Necessity - Tobacco Use Smoking Status: Former smoker Tobacco Use: Non-smoker, Cigarettes Assessment/Plan All Active Problems (Last Updated 04/04/18 @ 08:55 by Ev Cantrell) Nonhealing surgical wound (Acute) 39 weeks gestation of (Acute) Request for sterilization (Acute) Moderate cervical dysplasia, histologically confirmed (Acute) delivery delivered (Acute) Doing well postoperative day #1 status post robotic assisted vaginal hysterectomy and bilateral salpingectomy. Will release to home later today with routine instructions.
[2019-07-16 08:23] VITALS: BP 107/51; PULSE 54; RESP 16; TEMP 36.8; O2SAT 99
[2019-07-16] MEDS: Docusate Sodium 100 MG Capsule PO (08:37)
[2019-07-16] MEDS: oxyCODONE 5 MG Tablet PO ×2 (08:37→14:21)
[2019-07-16] MEDS: Ketorolac 10 MG Tablet PO (10:55)
[2019-07-16 14:14] VITALS: BP 105/54; PULSE 55; RESP 16; TEMP 37.3; O2SAT 98
== END 2019-07-16 15:56 | disposition home or self-care (01) ==
LOC: SDC 05:55 → AC 05:55 → MS3 07-16 09:36
PROVIDERS: Referring Provider Obstetrics & Gynecology; Visit Provider Obstetrics & Gynecology
PROC: 0UT90ZZ Resection of Uterus, Open Approach (ICD-10-PCS; CPT 58552; principal; 2019-07-15 07:10)
DX: R87.613 High grade squamous intraepithelial lesion on cytologic smear of cervix (HGSIL) (principal); Z87.891 Personal history of nicotine dependence
CPT/HCPCS: 00840; 58552; S2900; 36415; 82565; 85027; 85610; 85730; 86850; 86900; 86901; 88307; 88341; 88342; 99251; J7120; A4216; G0463; J2405

== ENCOUNTER 2020-03-30 20:46 | Emergency (ER) | payer OTHER, SELFPAY ==
[2019-07-15 11:47] VITALS: BMI 22.2
--- NOTE | 2020-03-30 20:56 | ED.VIS.GEN ---
History of Present Illness Chief Complaint: Poisoning Narrative: 34-year-old female with no significant past medical history presents with headache and nausea. Patient was found to be in a home that had a CO level of 300 ppm. Patient otherwise has no complaints. States that she has been feeling this way for approximately 1 week. Denies any numbness or tingling. Denies any vision change. Patient is a current smoker. CO level found by EMS to be approximately 20. Past Medical History - Allergies and Home Meds Allergies/Adverse Reactions: Allergies hydrocodone Adverse Reaction (Verified 03/30/20 21:09) Nausea Primary Care Physician: Care Physician,No Primary [Primary Care Provider] - Past Medical History: None Surgical History: - - . breast reduction Lives: With Family Smoking Status: Former smoker Alcohol: None Drugs: None Review of Systems General: Denies: Chills, Fever, Sweats Eyes: Denies: Visual changes - bilaterally, Diplopia ENT: Denies: Rhinorrhea, Sore throat Cardiovascular: Denies: Chest pain, Palpitations Respiratory: Denies: Dyspnea, Cough, Dyspnea on exertion Gastrointestinal: Reports: Nausea. Denies: Abdominal pain, Vomiting, Diarrhea, Melena, Hematochezia Genitourinary: Denies: Dysuria, Hematuria, Frequency Musculoskeletal: Denies: Back pain, Extremity Pain Skin: Denies: Rash, Wounds Neurological: Reports: Headache. Denies: Weakness, Numbness Physical Exam General: Well nourished, Well developed, No Acute Distress Head: Normocephalic, Atraumatic Eyes: Perrl, EOMI ENT: Moist mucous membranes, No rhinorrhea Neck: Supple, Nontender Cardiovascular: Regular rate, Regular rhythm, No murmurs Respiratory: No distress, CTA bilaterally, Chest nontender Abdomen: Soft, Nontender, Nondistended, Normal bowel sounds Back: Nontender, Normal Inspection Extremities: Nontender, No edema Skin: Normal color, No rash Neurological: Alert, Oriented x3, Cranial nerves II-XII grossly intact, Normal Strength, Normal Sensation Psychological: Normal affect, Normal Mood Diagnostic/Tx/Re-eval - Medical Decision Making Patient appears well and nontoxic. Patient was on nonrebreather for approximately 2-1/2 hours. Recheck of oximetry shows a carbon monoxide of 5. Family will be returning to the home with strict recommendations from the fire department. The fire department had checked the home after all the windows have been open for a period of time and the levels are negative. They did advise not turning on the water heater of the furnace. Parents will be calling for repair tomorrow. Asked to return for any new or worsening symptoms. Impression: 1. CO poisoning ED Disposition - Plan for ED Patient: Disposition: Home or Assisted Living Instructions: ED Carbon Monoxide Poisoning Referrals: Erin Ortega MD [STAFF PHYSICIAN] - 2 Days
[2020-03-30 21:11] VITALS: BP 113/68; PULSE 89; RESP 14; TEMP 36.7; O2SAT 97; BMI 24.3
[2020-03-30 22:28] VITALS: PULSE 60; RESP 18; O2SAT 99
== END 2020-03-30 23:28 | disposition home or self-care (01) ==
PROVIDERS: Emergency Provider Emergency Medicine
DX: T59.7X1A Toxic effect of carbon dioxide, accidental (unintentional), initial encounter (principal); R51.9 Headache, unspecified; R11.0 Nausea; Y92.009 Unspecified place in unspecified non-institutional (private) residence as the place of occurrence of the external cause; F17.200 Nicotine dependence, unspecified, uncomplicated
CPT/HCPCS: 99284

== ENCOUNTER → 2021-10-15 | Outpatient (CLI) | payer OTHER, SELFPAY ==
[2021-10-15 12:39] LABS: Vitamin B12 456 pg/mL (211-911); Vitamin D,25 Hydroxy 96.4 ng/mL
[2021-10-15 12:50] LABS: Absolute Lymphocyte Count 1.62 X10^3/uL (0.83-4.51); Absolute Neutrophil Count 1.5 X10^3/uL (2.0-7.7); Basophil# 0.02 X10^3/uL; Basophil% 0.6 % (0-1); Eosinophil# 0.04 X10^3/uL; Eosinophils% 1.1 % (0-5); Erythrocyte Sedimentation Rate 16 mm/hr (0-30); Hematocrit 39.8 % (37-47); Lymphocyte # 1.62 X10^3/ul (0.83-4.51); Lymphocyte % 44.6 % (19-41); Mean Corp Hgb Conc 32.7 g/dL (32-36); Mean Corpuscular Hgb 29.6 pg (27.0-32.0); Mean Corpuscular Volume 90.7 fL (81-99); Mean Platelet Vol. 10.9 fl (6.2-12.0); Monocyte# 0.48 X10^3/uL; Monocyte% 13.2 % (0-10); NRBC Flagged by Analyzer 0 % (0-5); Neutrophil # 1.47 X10^3/uL (2.7-7.7); Neutrophil % 40.5 % (47-70); Platelet Count 281 K/mm3 (150-450); RBC Distribution Width CV 12.3 % (11.6-14.6); RBC Distribution Width SD 40.9 fl (35.1-43.9); Red Blood Count 4.39 M/mm3 (4.2-5.4); White Blood Count 3.6 K/mm3 (4.4-11.0)
[2021-10-15 12:57] LABS: ALB/GLOB Ratio 1.3 RATIO (0.9-2.4); AST(SGOT) 15 U/L (15-37); Alanine Aminotransfer ALT/SGPT 22 U/L (13-56); Albumin, Serum 4.3 g/dL (3.2-5.0); Alkaline Phosphatase 62 U/L (45-117); Anion Gap 7 (5-15); BUN 10 mg/dL (7-18); BUN/Creat Ratio 11.9 RATIO (10-20); Chloride 107 mmol/L (98-107); Creatinine, Serum 0.84 mg/dL (0.55-1.02); EST Glomerular Filtration Rate 82 mL/min (>60); Est Glom Filt Rate - Afr Amer 100 mL/min (>60); Globulin 3.3 g/dL (2.2-4.2); Glucose 83 mg/dL (74-106); Protein, Total 7.6 g/dL (6.4-8.2); Rheumatoid Factor < 10.0 IU/mL (<15); Sodium Level 138 mmol/L (136-145); T4 Free Direct 0.95 ng/dL (0.76-1.46); Thyroid Stim Hormone (TSH) 1.36 uIU/mL (0.358-3.74)
[2021-10-18 15:14] LABS: ANTINUCLEAR ANTIBODIES DIRECT Positive (Negative)
[2021-10-25 11:07] LABS: Anti-Centromere B Ab <0.2 AI (0.0-0.9); Anti-Chromatin <0.2 AI (0.0-0.9); Anti-Jo <0.2 AI (0.0-0.9); Anti-Scleroderma-70 AB <0.2 AI (0.0-0.9); RNP Ab <0.2 AI (0.0-0.9); SJOGREN'S Anti-SS-A test < 0.2 AI (0.0-0.9); SJOGREN'S Anti-SS-B test < 0.2 AI (0.0-0.9); Smith Ab <0.2 AI (0.0-0.9)
[2021-10-25 13:18] LABS: Anti-dsDNA Ab 12 IU/mL (0-9)
== END | disposition home or self-care (01) ==
LOC: MFPLAB 10:10
PROVIDERS: PCP Family Medicine; Referring Provider Family Medicine; Visit Provider Family Medicine
DX: M25.50 Pain in unspecified joint (principal); R53.83 Other fatigue
CPT/HCPCS: 80053; 82306; 82607; 84439; 84443; 85025; 85652; 86038; 86225; 86235; 86431

== ENCOUNTER → 2022-01-12 | Outpatient (CLI) | payer OTHER, SELFPAY ==
--- NOTE | 2022-01-12 09:19 | RAD_ITS ---
INDICATION: COUGH EXAMINATION/TECHNIQUE: X-RAY - XR Chest 2 Views COMPARISON: None. FINDINGS: LINES/DEVICES: None. LUNGS: No consolidation, edema or effusion. No pneumothorax. MEDIASTINUM AND CARDIOVASCULAR STRUCTURES: Cardiac silhouette not enlarged. Central airways and mediastinal contour are unremarkable. BONES AND SOFT TISSUES: Unremarkable. RAD/Chest PA and Lateral IMPRESSION: No radiographic evidence of acute cardiopulmonary disease. Electronically Signed: Rao Rollins MD at 10:26 EDT ,
== END | disposition home or self-care (01) ==
LOC: MTRAD 09:18
PROVIDERS: PCP Family Medicine; Referring Provider Internal Medicine Rheumatology; Visit Provider Internal Medicine Rheumatology
DX: R05.9 Cough, unspecified (principal)
CPT/HCPCS: 71046

== ENCOUNTER → 2022-08-16 | Outpatient (CLI) | payer OTHER, SELFPAY ==
[2022-08-23 10:10] LABS: HPV APTIMA, High Risk Negative (Negative)
== END | disposition home or self-care (01) ==
LOC: LABSPEC 15:59
PROVIDERS: PCP Family Medicine; Visit Provider Student in an Organized Health Care Education/Training Program
DX: Z12.4 Encounter for screening for malignant neoplasm of cervix (principal)
CPT/HCPCS: 87624; 88175; G0145

== ENCOUNTER → 2023-11-21 | Outpatient (CLI) | payer OTHER, SELFPAY ==
--- NOTE | 2023-11-21 08:12 | MRI_ITS ---
EXAM: MR HEAD WITHOUT AND WITH INTRAVENOUS CONTRAST CLINICAL INDICATION: LOSS OF CONSCIOUSNESS, BLURRED VISION, HEADACHES TECHNIQUE: Multiplanar and multisequence MR images of the brain were obtained without and with intravenous contrast. CONTRAST: IV 15ML CLARISCAN COMPARISON: No relevant prior studies available. FINDINGS: BRAIN AND EXTRA-AXIAL SPACES: No abnormal areas of enhancement identified within the brain parenchyma or elsewhere after contrast administration. No intra- or extra-axial hemorrhage. No evidence of acute infarct. No intracranial mass or mass effect. There is preservation of the rowell/white matter interface. Posterior fossa structures are unremarkable. Ventricles are appropriate for age. No hydrocephalus. Basal cisterns are patent. SELLA: Unremarkable. Normal sella turcica, pituitary gland, infundibular stalk, optic chiasm and hypothalamus. AUDITORY SYSTEM: Unremarkable. The internal auditory canals are patent. BONES/JOINTS: Unremarkable. No discrete lytic or blastic abnormalities. SINUSES: Unremarkable as visualized. Clear. MASTOID AIR CELLS: Unremarkable as visualized. Clear. ORBITS: Unremarkable as visualized. Both globes, extraocular muscles, optic nerves and retrobulbar fat appear unremarkable. VASCULATURE: Unremarkable as visualized. Normal flow voids in the major intracranial circulation. MRI/Brain W/WO Contrast IMPRESSION: No acute findings in the head/brain. Electronically Signed: Harry Foley MD at 7:37 EDT ,
== END | disposition home or self-care (01) ==
PROVIDERS: PCP Family Medicine; Referring Provider Family Medicine; Visit Provider Family Medicine
DX: R40.20 Unspecified coma (principal)
CPT/HCPCS: 70553; A9575

== ENCOUNTER → 2023-11-27 | Outpatient (CLI) | payer OTHER, SELFPAY | END | disposition home or self-care (01) | PROVIDERS: PCP Family Medicine; Referring Provider Family Medicine; Visit Provider Family Medicine | DX: R40.20 Unspecified coma (principal) | CPT/HCPCS: 95819 ==